=== PATIENT | female | born 1960 | race Caucasian/White ===

== ENCOUNTER 2023-01-08 13:05 | Inpatient (IN) | payer BC ==
[2023-01-08 13:34] VITALS: BMI 21.7
[2023-01-08] MEDS ORDERED: DIPHTH,PERTUSS(ACELL),TET 0.5 ML DISP.SYRIN IM ONE ×2 (14:43→14:49)
[2023-01-08] MEDS ORDERED: ACETAMINOPHEN 1000 MG/100 ML BAG IVPB ONE (17:22)
[2023-01-08] MEDS ORDERED: morphine CARPU-JECT 4 MG/1 ML DISP.SYRIN IVPUSH ONE (17:22)
[2023-01-08] MEDS ORDERED: ACETAMINOPHEN INJECTION 100 ML IVPB ONE (17:47)
[2023-01-08] MEDS ORDERED: morphine SULFATE 4 MG/ML VIAL ONE (17:47)
[2023-01-08 18:10] LABS: BASO % 0.3 % (0-2.0); HEMATOCRIT 36.7 % (32.4-45.2); HEMOGLOBIN 11.9 GM/dL (10.7-15.3); LYMPH % 8.5 % (8-40); MCH 28.4 pg (25.7-33.7); MCHC 32.6 g/dl (32.0-36.0); MEAN PLT VOLUME 7.9 fl (7.5-11.1); MONO % 5.5 % (3.8-10.2); NEUT % 85.7 % (42.8-82.8); PLATELET COUNT 223 10^3/uL (134-434); RBC 4.21 M/mm3 (3.60-5.2); RDW 16.3 % (11.6-15.6); WHITE BLOOD COUNT 13.7 K/mm3 (4.0-10.0)
[2023-01-08 18:19] LABS: INR 1.09 (0.83-1.09); PROTHROMBIN TIME (PATIENT) 12.6 SEC (9.7-13.0)
[2023-01-08 18:22] LABS: ACTIVATED PTT 35.6 SECONDS (25.2-36.5)
[2023-01-08 18:44] LABS: ALBUMIN 3.6 g/dl (3.4-5.0); BLOOD UREA NITROGEN 24.1 mg/dL (7-18); CALCIUM 9.2 mg/dL (8.5-10.1)
[2023-01-08 18:47] LABS: CREATININE 0.9 mg/dL (0.55-1.3)
[2023-01-08 18:49] LABS: BILIRUBIN,TOTAL 0.3 mg/dL (0.2-1); TOT PROT 7.8 g/dl (6.4-8.2)
[2023-01-08] MEDS ORDERED: ACETAMINOPHEN 325 MG TABLET (FP) PO PRN (19:10)
[2023-01-08] MEDS: HEPARIN NA (PORCINE) 5,000 UNITS/ML 1ML VIAL SQ SCH (22:41)
[2023-01-08] MEDS: SODIUM CHLORIDE 1,000 ML IV SCH (22:45)
[2023-01-09 08:55] LABS: BASO % 0.1 % (0-2.0); EOS % 0.1 % (0-4.5); HEMATOCRIT 31.2 % (32.4-45.2); HEMOGLOBIN 10.5 GM/dL (10.7-15.3); LYMPH % 26.1 % (8-40); MCH 28.6 pg (25.7-33.7); MCHC 33.5 g/dl (32.0-36.0); MEAN CELL VOLUME 85.4 fl (80-96); MEAN PLT VOLUME 8.3 fl (7.5-11.1); MONO % 9.5 % (3.8-10.2); NEUT % 64.2 % (42.8-82.8); PLATELET COUNT 213 10^3/uL (134-434); RBC 3.65 M/mm3 (3.60-5.2); RDW 15.8 % (11.6-15.6); WHITE BLOOD COUNT 9.9 K/mm3 (4.0-10.0)
[2023-01-09 09:17] LABS: ALBUMIN 3.1 g/dl (3.4-5.0); CALCIUM 8.5 mg/dL (8.5-10.1)
[2023-01-09 09:20] LABS: CREATININE 0.8 mg/dL (0.55-1.3)
[2023-01-09 09:23] LABS: BILIRUBIN,TOTAL 0.7 mg/dL (0.2-1)
[2023-01-09] MEDS: HEPARIN NA (PORCINE) 5,000 UNITS/ML 1ML VIAL SQ SCH (09:56)
[2023-01-09] MEDS: LEVOTHYROXINE NA 88 MCG TABLET (FP) PO SCH (10:48)
[2023-01-09] MEDS: SODIUM CHLORIDE 1,000 ML IV SCH ×2 (13:58→23:59)
[2023-01-09] MEDS ORDERED: DEXAMETHASONE SOD PHOSPHATE 10 MG/1 ML VIAL ONE (18:24)
[2023-01-09] MEDS ORDERED: ROPIVACAINE HCL 0.5% 30ML VIAL ONE (18:24)
[2023-01-09] MEDS: HYDROmorphone *PCA* 10MG/50ML DISP.SYRIN PCA SCH (20:56)
[2023-01-10] MEDS: HEPARIN NA (PORCINE) 5,000 UNITS/ML 1ML VIAL SQ SCH ×3 (00:28→21:45)
[2023-01-10] MEDS: SODIUM CHLORIDE 1,000 ML IV SCH ×3 (05:00→15:17)
[2023-01-10] MEDS ORDERED: ACETAMINOPHEN 325 MG TABLET (FP) PO ONE (06:35)
[2023-01-10 08:48] LABS: PH,URINE 5.5 (5.0-8.0); URINE APPEARANCE CLEAR; URINE BILIRUBIN NEGATIVE (NEGATIVE); URINE COLOR YELLOW; URINE GLUCOSE (UA) NEGATIVE (NEGATIVE); URINE KETONE TRACE (NEGATIVE); URINE LEUK ESTERASE NEGATIVE (NEGATIVE); URINE NITRITE NEGATIVE (NEGATIVE); URINE PROTEIN NEGATIVE (NEGATIVE); URINE UROBILINOGEN 0.2 mg/dL (0.2-1.0)
[2023-01-10] MEDS ORDERED: ACETAMINOPHEN 500 MG TABLET (FP) PO PRN (08:59)
[2023-01-10] MEDS: LEVOTHYROXINE NA 88 MCG TABLET (FP) PO SCH (09:20)
[2023-01-10 10:07] LABS: BASO % 0.1 % (0-2.0); HEMOGLOBIN 9.2 GM/dL (10.7-15.3); LYMPH % 11.7 % (8-40); MCH 29.6 pg (25.7-33.7); MCHC 33.9 g/dl (32.0-36.0); MEAN CELL VOLUME 87.2 fl (80-96); MEAN PLT VOLUME 8.5 fl (7.5-11.1); MONO % 9.4 % (3.8-10.2); NEUT % 78.8 % (42.8-82.8); PLATELET COUNT 170 10^3/uL (134-434); RDW 15.9 % (11.6-15.6); WHITE BLOOD COUNT 9.9 K/mm3 (4.0-10.0)
[2023-01-10 10:34] LABS: CALCIUM 7.8 mg/dL (8.5-10.1)
[2023-01-10 10:35] LABS: ALBUMIN 2.8 g/dl (3.4-5.0)
[2023-01-10 10:38] LABS: CREATININE 0.8 mg/dL (0.55-1.3)
[2023-01-10 10:40] LABS: BILIRUBIN,TOTAL 0.7 mg/dL (0.2-1); TOT PROT 6.2 g/dl (6.4-8.2)
[2023-01-10] MEDS: HYDROmorphone *PCA* 10MG/50ML DISP.SYRIN PCA SCH (20:01)
[2023-01-11] MEDS: SODIUM CHLORIDE 1,000 ML IV SCH ×3 (01:47→20:08)
[2023-01-11] MEDS ORDERED: LEVOTHYROXINE NA 88 MCG TABLET (FP) PO SCH (07:00)
[2023-01-11] MEDS ORDERED: PROPOFOL 20 ML ONE (08:41)
[2023-01-11] MEDS ORDERED: MIDAZOLAM HCL 2 MG/2 ML SINGLE DOSE VIAL ONE ×3 (08:42→11:02)
[2023-01-11 08:46] LABS: BASO % 0.2 % (0-2.0); EOS % 0.4 % (0-4.5); HEMATOCRIT 29.1 % (32.4-45.2); HEMOGLOBIN 9.5 GM/dL (10.7-15.3); LYMPH % 23.3 % (8-40); MCH 28.9 pg (25.7-33.7); MCHC 32.7 g/dl (32.0-36.0); MEAN CELL VOLUME 88.4 fl (80-96); MEAN PLT VOLUME 8.7 fl (7.5-11.1); MONO % 7.7 % (3.8-10.2); NEUT % 68.4 % (42.8-82.8); PLATELET COUNT 168 10^3/uL (134-434); RBC 3.29 M/mm3 (3.60-5.2); RDW 15.7 % (11.6-15.6); WHITE BLOOD COUNT 8.3 K/mm3 (4.0-10.0)
[2023-01-11] MEDS ORDERED: BUPIVACAINE HCL/PF 0.5% (5MG/ML) 10 ML VIAL ONE (08:49)
[2023-01-11] MEDS ORDERED: BUPIVACAINE LIPOSOME/PF (EXPAREL) 266 MG/20 ML VIAL ONE (08:49)
[2023-01-11 09:02] LABS: ALBUMIN 2.5 g/dl (3.4-5.0); CALCIUM 7.6 mg/dL (8.5-10.1)
[2023-01-11 09:03] LABS: BLOOD UREA NITROGEN 14.2 mg/dL (7-18)
[2023-01-11 09:05] LABS: CREATININE 0.7 mg/dL (0.55-1.3)
[2023-01-11 09:07] LABS: BILIRUBIN,TOTAL 0.4 mg/dL (0.2-1)
[2023-01-11] MEDS ORDERED: ceFAZolin SODIUM 1 GM VIAL IVPB ONE (09:30)
[2023-01-11] MEDS: HEPARIN NA (PORCINE) 5,000 UNITS/ML 1ML VIAL SQ SCH (10:02)
[2023-01-11] MEDS ORDERED: ONDANSETRON 4 MG/2 ML VIAL ONE (11:38)
[2023-01-11] MEDS ORDERED: ceFAZolin SODIUM 1 GM VIAL ONE (11:38)
[2023-01-11] MEDS ORDERED: DEXAMETHASONE SOD PHOSPHATE 4 MG/1 ML VIAL ONE (11:38)
[2023-01-11] MEDS ORDERED: MEPERIDINE HCL 25 MG/ML VIAL ONE (12:07)
[2023-01-11] MEDS ORDERED: ONDANSETRON 4 MG/2 ML VIAL IVPUSH PRN (12:17)
[2023-01-11] MEDS ORDERED: ACETAMINOPHEN 1000 MG/100 ML BAG IVPB ONE (12:17)
[2023-01-11] MEDS ORDERED: MEPERIDINE HCL 25 MG/ML VIAL IVPUSH ONE (12:18)
[2023-01-11] MEDS ORDERED: ACETAMINOPHEN 500 MG TABLET (FP) PO PRN (12:28)
[2023-01-11] MEDS ORDERED: HYDROmorphone *PCA* 10MG/50ML DISP.SYRIN PCA SCH (12:28)
[2023-01-11] MEDS ORDERED: LACTATED RINGERS SOLUTION 1,000 ML IV SCH (12:30)
[2023-01-11] MEDS ORDERED: ACETAMINOPHEN INJECTION 100 ML IVPB ONE (12:31)
[2023-01-11] MEDS: CEFAZOLIN 1 GM in DEXTROSE 5%-WATER - 50 ML IVPB SCH (18:00)
[2023-01-12] MEDS: CEFAZOLIN 1 GM in DEXTROSE 5%-WATER - 50 ML IVPB SCH ×2 (03:09→09:51)
[2023-01-12] MEDS: ACETAMINOPHEN 325 MG TABLET (FP) PO PRN ×2 (05:57→13:21)
[2023-01-12] MEDS: SODIUM CHLORIDE 1,000 ML IV SCH ×3 (07:01→18:30)
[2023-01-12] MEDS: LEVOTHYROXINE NA 88 MCG TABLET (FP) PO SCH ×2 (07:37→07:39)
[2023-01-12 08:16] LABS: BASO % 0.1 % (0-2.0); HEMATOCRIT 28.2 % (32.4-45.2); HEMOGLOBIN 9.5 GM/dL (10.7-15.3); LYMPH % 17.4 % (8-40); MCH 29.1 pg (25.7-33.7); MCHC 33.7 g/dl (32.0-36.0); MEAN CELL VOLUME 86.5 fl (80-96); MEAN PLT VOLUME 8.4 fl (7.5-11.1); MONO % 7.8 % (3.8-10.2); NEUT % 74.7 % (42.8-82.8); PLATELET COUNT 185 10^3/uL (134-434); RBC 3.26 M/mm3 (3.60-5.2); RDW 15.4 % (11.6-15.6); WHITE BLOOD COUNT 9.5 K/mm3 (4.0-10.0)
[2023-01-12 08:35] LABS: CALCIUM 7.8 mg/dL (8.5-10.1)
[2023-01-12 08:36] LABS: ALBUMIN 2.4 g/dl (3.4-5.0); BLOOD UREA NITROGEN 13.6 mg/dL (7-18)
[2023-01-12 08:39] LABS: BILIRUBIN,TOTAL 0.4 mg/dL (0.2-1); CREATININE 0.6 mg/dL (0.55-1.3)
[2023-01-12 08:40] LABS: TOT PROT 5.9 g/dl (6.4-8.2)
[2023-01-12] MEDS: ENOXAPARIN NA (PORCINE) 40 MG/0.4 ML DISP.SYRIN SQ SCH (11:37)
[2023-01-12] MEDS ORDERED: DOCUSATE SODIUM 100 MG CAPSULE (FP) PO PRN (12:43)
[2023-01-12] MEDS: POLYETHYLENE GLYCOL (HEALTHYLAX) 3350 17 GM PACKET PO SCH (13:19)
[2023-01-13] MEDS: LEVOTHYROXINE NA 88 MCG TABLET (FP) PO SCH (07:12)
[2023-01-13] MEDS: CHOLECALCIFEROL (VIT D3) 1,000 UNIT (25 MCG) TABLET PO SCH (09:41)
[2023-01-13] MEDS: ENOXAPARIN NA (PORCINE) 40 MG/0.4 ML DISP.SYRIN SQ SCH (09:41)
[2023-01-13] MEDS: POLYETHYLENE GLYCOL (HEALTHYLAX) 3350 17 GM PACKET PO SCH (09:41)
[2023-01-13 10:12] LABS: BASO % 0.1 % (0-2.0); EOS % 0.5 % (0-4.5); HEMATOCRIT 26.9 % (32.4-45.2); HEMOGLOBIN 8.8 GM/dL (10.7-15.3); LYMPH % 24.9 % (8-40); MCHC 32.8 g/dl (32.0-36.0); MEAN CELL VOLUME 85.3 fl (80-96); MEAN PLT VOLUME 8.3 fl (7.5-11.1); MONO % 7.3 % (3.8-10.2); NEUT % 67.2 % (42.8-82.8); PLATELET COUNT 178 10^3/uL (134-434); RBC 3.15 M/mm3 (3.60-5.2); RDW 15.7 % (11.6-15.6); WHITE BLOOD COUNT 8.7 K/mm3 (4.0-10.0)
[2023-01-13 10:49] LABS: CALCIUM 7.6 mg/dL (8.5-10.1)
[2023-01-13 10:51] LABS: ALBUMIN 2.1 g/dl (3.4-5.0); BLOOD UREA NITROGEN 9.7 mg/dL (7-18)
[2023-01-13 10:54] LABS: CREATININE 0.8 mg/dL (0.55-1.3)
[2023-01-13 10:55] LABS: BILIRUBIN,TOTAL 0.4 mg/dL (0.2-1)
[2023-01-13 10:56] LABS: TOT PROT 5.6 g/dl (6.4-8.2)
[2023-01-13] MEDS: ACETAMINOPHEN 325 MG TABLET (FP) PO PRN (19:00)
[2023-01-14] MEDS: LEVOTHYROXINE NA 88 MCG TABLET (FP) PO SCH (06:49)
[2023-01-14 08:53] VITALS: RESP 18
[2023-01-14] MEDS: ENOXAPARIN NA (PORCINE) 40 MG/0.4 ML DISP.SYRIN SQ SCH (09:48)
[2023-01-14] MEDS: CHOLECALCIFEROL (VIT D3) 1,000 UNIT (25 MCG) TABLET PO SCH (09:48)
[2023-01-14] MEDS: POLYETHYLENE GLYCOL (HEALTHYLAX) 3350 17 GM PACKET PO SCH (09:48)
[2023-01-14 10:15] LABS: BASO % 0.1 % (0-2.0); EOS % 1.1 % (0-4.5); HEMATOCRIT 27.6 % (32.4-45.2); HEMOGLOBIN 9.2 GM/dL (10.7-15.3); LYMPH % 21.4 % (8-40); MCH 28.2 pg (25.7-33.7); MCHC 33.2 g/dl (32.0-36.0); MEAN CELL VOLUME 84.9 fl (80-96); MEAN PLT VOLUME 8.3 fl (7.5-11.1); MONO % 7.7 % (3.8-10.2); NEUT % 69.7 % (42.8-82.8); PLATELET COUNT 185 10^3/uL (134-434); RBC 3.25 M/mm3 (3.60-5.2); RDW 15.4 % (11.6-15.6); WHITE BLOOD COUNT 8.1 K/mm3 (4.0-10.0)
[2023-01-14 10:43] LABS: ALBUMIN 2.2 g/dl (3.4-5.0); BLOOD UREA NITROGEN 9.8 mg/dL (7-18); CALCIUM 7.9 mg/dL (8.5-10.1)
[2023-01-14 10:47] LABS: BILIRUBIN,TOTAL 0.6 mg/dL (0.2-1); CREATININE 0.7 mg/dL (0.55-1.3)
[2023-01-14 10:48] LABS: TOT PROT 6.2 g/dl (6.4-8.2)
[2023-01-14] MEDS ORDERED: POTASSIUM CHLORIDE ORAL LIQUID 20 MEQ/15 ML PO ONE (13:45)
[2023-01-14] MEDS: ACETAMINOPHEN 325 MG TABLET (FP) PO PRN (18:01)
[2023-01-15] MEDS: LEVOTHYROXINE NA 88 MCG TABLET (FP) PO SCH (06:09)
[2023-01-15] MEDS: ENOXAPARIN NA (PORCINE) 40 MG/0.4 ML DISP.SYRIN SQ SCH (09:53)
[2023-01-15] MEDS: CHOLECALCIFEROL (VIT D3) 1,000 UNIT (25 MCG) TABLET PO SCH (09:53)
[2023-01-15] MEDS: POLYETHYLENE GLYCOL (HEALTHYLAX) 3350 17 GM PACKET PO SCH (09:54)
[2023-01-15 10:40] LABS: CALCIUM 8.2 mg/dL (8.5-10.1)
[2023-01-15 10:42] LABS: BLOOD UREA NITROGEN 15.2 mg/dL (7-18)
[2023-01-15 10:45] LABS: CREATININE 0.7 mg/dL (0.55-1.3)
[2023-01-15] MEDS: ACETAMINOPHEN 325 MG TABLET (FP) PO PRN (14:31)
[2023-01-16] MEDS: ACETAMINOPHEN 325 MG TABLET (FP) PO PRN (00:47)
[2023-01-16] MEDS: LEVOTHYROXINE NA 88 MCG TABLET (FP) PO SCH (06:40)
[2023-01-16] MEDS: POLYETHYLENE GLYCOL (HEALTHYLAX) 3350 17 GM PACKET PO SCH (09:03)
[2023-01-16] MEDS: ENOXAPARIN NA (PORCINE) 40 MG/0.4 ML DISP.SYRIN SQ SCH (09:04)
[2023-01-16] MEDS: CHOLECALCIFEROL (VIT D3) 1,000 UNIT (25 MCG) TABLET PO SCH (09:04)
[2023-01-16 10:30] VITALS: BP 114/65; PULSE 88; TEMP 97.5
== END 2023-01-16 15:31 | DRG 482 ==
LOC: JER 13:05 → JERBED 17:15 → J6S 21:05
PROVIDERS: ADMIT Internal Medicine; ATTEND Internal Medicine
PROC: 0QSC04Z Reposition Left Lower Femur with Internal Fixation Device, Open Approach (ICD-10-PCS; principal; 2023-01-11 09:00)
DX: S72.492A Other fracture of lower end of left femur, initial encounter for closed fracture (principal); S01.81XA Laceration without foreign body of other part of head, initial encounter; E03.9 Hypothyroidism, unspecified; W19.XXXA Unspecified fall, initial encounter; Y93.9 Activity, unspecified; Y92.89 Other specified places as the place of occurrence of the external cause; Y99.9 Unspecified external cause status; R50.9 Fever, unspecified
CPT/HCPCS: 0241U-QW; 36415; 70450-TC; 70486-TC; 71045-TC-FY; 72170-TC-FY; 73552-TC-LT-FY; 73562-TC-LT-FY; 73590-TC-LT-FY; 76000-TC-FY; 76882-TC-LT; 80048; 80053; 81003; 85025; 85610; 85730; 86850; 86900; 86901; 87040; 87086; 87186; 90715; 93005; 93010; 94760; 97116-GP; 97162-GP; 99285-25; C1713; C9803-CS; J1100; J1644; U0003; U0005

== ENCOUNTER 2024-12-01 15:52 | Inpatient (IN) | payer BC ==
[2024-12-01 16:50] LABS: HEMATOCRIT 41.7 % (32.4-45.2); HEMOGLOBIN 13.9 GM/dL (10.7-15.3); LYMPH % 24.5 % (8-40); MCH 26.8 pg (25.7-33.7); MCHC 33.4 g/dl (32.0-36.0); MEAN CELL VOLUME 80.4 fl (80-96); MEAN PLT VOLUME 7.8 fl (7.5-11.1); MONO % 4.1 % (3.8-10.2); NEUT % 71.4 % (42.8-82.8); PLATELET COUNT 186 10^3/uL (134-434); RBC 5.19 M/mm3 (3.60-5.2); RDW 20.4 % (11.6-15.6); VENOUS BASE EXCESS -7.2 mmol/L (-2-2); VENOUS O2 SATURATION 22.3 % (70-80); VENOUS PCO2 27.4 mmHg (38-52); VENOUS PH 7.388 (7.310-7.410)
[2024-12-01] MEDS: SODIUM CHLORIDE 0.9% 500 ML INFUS.BAG IV ONE (17:02)
[2024-12-01 17:04] LABS: POTASSIUM 4.4 mmol/L (3.5-5.1)
[2024-12-01 17:06] LABS: CALCIUM 9.7 mg/dL (8.5-10.1)
[2024-12-01 17:07] LABS: ALBUMIN 3.9 g/dl (3.4-5.0); BLOOD UREA NITROGEN 77.1 mg/dL (7-18)
[2024-12-01 17:09] LABS: INR 1.26 (0.83-1.09); PROTHROMBIN TIME (PATIENT) 14.1 SEC (9.7-13.0)
[2024-12-01 17:12] LABS: ACTIVATED PTT 24.6 SECONDS (25.2-36.5); TOT PROT 7.7 g/dl (6.4-8.2)
[2024-12-01 17:35] LABS: EPI CELLS 6 /uL (0-25.1); HYALINE CASTS 4 /uL (0-3.1); PH,URINE 5.5 (5.0-8.0); URINE APPEARANCE CLEAR; URINE BACTERIA 40 /uL (0-1359); URINE BILIRUBIN NEGATIVE (NEGATIVE); URINE COLOR YELLOW; URINE GLUCOSE (UA) NEGATIVE (NEGATIVE); URINE KETONE TRACE (NEGATIVE); URINE LEUK ESTERASE NEGATIVE (NEGATIVE); URINE NITRITE NEGATIVE (NEGATIVE); URINE PROTEIN 2+ (NEGATIVE); URINE RBC 15 /uL (0-23.9); URINE UROBILINOGEN 0.2 mg/dL (0.2-1.0); URINE WBC 8 /uL (0-25.8)
[2024-12-01] MEDS ORDERED: ONDANSETRON 8 MG TABLET (FP) PO PRN (23:57)
[2024-12-02] MEDS ORDERED: PANTOPRAZOLE SODIUM 40 MG VIAL ONE ×2 (02:27→11:57)
[2024-12-02] MEDS ORDERED: ALBUTEROL SO4 2.5/IPRATROPIUM 0.5 INH SOL 3 ML VIAL.NEB. NEB PRN (02:35)
[2024-12-02] MEDS: PANTOPRAZOLE SODIUM 40 MG VIAL IVPUSH SCH ×2 (02:36→12:09)
[2024-12-02] MEDS: SODIUM CHLORIDE 1,000 ML IV SCH ×2 (02:36→12:09)
[2024-12-02] MEDS: PANTOPRAZOLE SODIUM 40 MG VIAL IVPUSH ONE (02:37)
[2024-12-02] MEDS: ONDANSETRON 4 MG/2 ML VIAL IVPUSH ONE (02:37)
[2024-12-02] MEDS: ONDANSETRON 8 MG TABLET (FP) PO SCH (02:38)
[2024-12-02] MEDS ORDERED: ALBUTEROL SO4 2.5/IPRATROPIUM 0.5 INH SOL 3 ML VIAL.NEB. NEB SCH ×2 (02:45→10:00)
[2024-12-02] MEDS ORDERED: methylPREDNISolone NA SUCC 40 MG/1 ML VIAL ONE ×2 (06:06→22:38)
[2024-12-02] MEDS ORDERED: LEVOTHYROXINE NA 50 MCG TABLET (FP) ONE (06:08)
[2024-12-02] MEDS: methylPREDNISolone NA SUCC 40 MG/1 ML VIAL IVPUSH SCH ×2 (06:09→23:24)
[2024-12-02] MEDS: LEVOTHYROXINE NA 50 MCG TABLET (FP) PO SCH (06:09)
[2024-12-02 08:03] LABS: HEMATOCRIT 39.6 % (32.4-45.2); HEMOGLOBIN 13.2 GM/dL (10.7-15.3); MCHC 33.3 g/dl (32.0-36.0); MONO % 4.4 % (3.8-10.2); NEUT % 63.6 % (42.8-82.8); RBC 4.89 M/mm3 (3.60-5.2); RDW 20.9 % (11.6-15.6)
[2024-12-02] MEDS ORDERED: ALBUTEROL SO4 2.5/IPRATROPIUM 0.5 INH SOL 3 ML VIAL.NEB. NEB ONE ×3 (08:03→21:40)
[2024-12-02 08:13] LABS: POTASSIUM 3.3 mmol/L (3.5-5.1)
[2024-12-02 08:15] LABS: ALBUMIN 3.5 g/dl (3.4-5.0); CALCIUM 8.9 mg/dL (8.5-10.1)
[2024-12-02 08:16] LABS: BLOOD UREA NITROGEN 75.6 mg/dL (7-18); MAGNESIUM 2.5 mg/dL (1.8-2.4)
[2024-12-02 08:19] LABS: CREATININE 2.1 mg/dL (0.55-1.3); PHOSPHOROUS 4.1 mg/dL (2.5-4.9)
[2024-12-02 08:20] LABS: BILIRUBIN,TOTAL 0.7 mg/dL (0.2-1)
[2024-12-02 08:25] LABS: WHITE BLOOD COUNT 1.6 K/mm3 (4.0-10.0)
[2024-12-02] MEDS: ALBUTEROL SO4 2.5/IPRATROPIUM 0.5 INH SOL 3 ML VIAL.NEB. NEB SCH (08:30)
[2024-12-02 10:16] LABS: ANISOCYTOSIS 1+; MACROCYTOSIS 0
[2024-12-02 10:18] LABS: MEAN PLT VOLUME 7.7 fl (7.5-11.1); PLATELET COUNT 148 10^3/uL (134-434)
[2024-12-02] MEDS ORDERED: KCL 10 MEQ IVPB 10 MEQ/100 ML INFUS.BAG IVPB ONE ×3 (13:06→15:29)
[2024-12-02] MEDS: KCL 10 MEQ IVPB 10 MEQ/100 ML INFUS.BAG IVPB SCH (13:17)
[2024-12-02] MEDS ORDERED: methylPREDNISolone NA SUCC 40 MG/1 ML VIAL IVPUSH SCH (14:00)
[2024-12-02 21:37] LABS: URINE UREA NITROGEN 1124 mg/dL (350-1000)
[2024-12-03] MEDS ORDERED: LEVOTHYROXINE NA 50 MCG TABLET (FP) ONE (06:48)
[2024-12-03] MEDS ORDERED: PANTOPRAZOLE SODIUM 40 MG VIAL ONE (09:26)
[2024-12-03] MEDS ORDERED: ALBUTEROL SO4 2.5/IPRATROPIUM 0.5 INH SOL 3 ML VIAL.NEB. NEB ONE (09:30)
[2024-12-03] MEDS: LACTATED RINGERS SOLUTION 1,000 ML/1,000 ML INFUS.BAG IV SCH (14:04)
[2024-12-03] MEDS: IPRATROPIUM BR 0.02% 0.5 MG/2.5 ML VIAL.NEB. NEB SCH (14:50)
[2024-12-03] MEDS: LEVALBUTEROL HCL 0.63 MG/3 ML VIAL.NEB. IH SCH (14:50)
[2024-12-03] MEDS: METOPROLOL TARTRATE 5 MG/5 ML VIAL IVPB ONE (15:31)
[2024-12-03] MEDS: LACTATED RINGERS SOLUTION 1000 ML INFUS.BAG IV ONE (18:10)
[2024-12-03] MEDS: ACETAMINOPHEN 1000 MG/100 ML BAG IVPB PRN (20:37)
[2024-12-03] MEDS: SODIUM BICARBONATE 325 MG TABLET PO SCH (21:03)
[2024-12-03] MEDS: methylPREDNISolone NA SUCC 40 MG/1 ML VIAL IVPUSH SCH (21:33)
[2024-12-03] MEDS ORDERED: ACETAMINOPHEN 1000 MG/100 ML BAG IVPB PRN (21:39)
[2024-12-03 21:50] LABS: POTASSIUM 3.7 mmol/L (3.5-5.1)
[2024-12-03 21:52] LABS: CALCIUM 8.6 mg/dL (8.5-10.1)
[2024-12-03 21:53] LABS: ALBUMIN 2.9 g/dl (3.4-5.0); BLOOD UREA NITROGEN 67.8 mg/dL (7-18); MAGNESIUM 2.5 mg/dL (1.8-2.4)
[2024-12-03 21:56] LABS: CREATININE 2.3 mg/dL (0.55-1.3); PHOSPHOROUS 2.2 mg/dL (2.5-4.9)
[2024-12-03 21:57] LABS: BILIRUBIN,TOTAL 0.9 mg/dL (0.2-1); EOS % 0.1 % (0-4.5); HEMATOCRIT 42.4 % (32.4-45.2); HEMOGLOBIN 13.3 GM/dL (10.7-15.3); LYMPH % 48.8 % (8-40); MCHC 31.4 g/dl (32.0-36.0); MEAN CELL VOLUME 82.9 fl (80-96); MEAN PLT VOLUME 8.5 fl (7.5-11.1); MONO % 4.7 % (3.8-10.2); NEUT % 46.4 % (42.8-82.8); PLATELET COUNT 100 10^3/uL (134-434); RBC 5.11 M/mm3 (3.60-5.2); RDW 21.1 % (11.6-15.6); TOT PROT 5.9 g/dl (6.4-8.2)
[2024-12-03] MEDS ORDERED: HEPARIN NA (PORCINE) 5,000 UNITS/ML 1ML VIAL SQ SCH (22:00)
[2024-12-03 22:03] LABS: LACTIC ACID 4.1 mmol/L (0.4-2.0)
[2024-12-03 22:12] LABS: WHITE BLOOD COUNT 0.9 K/mm3 (4.0-10.0)
[2024-12-03] MEDS: SODIUM CHLORIDE 1,000 ML IV STA (23:08)
[2024-12-04] MEDS: ONDANSETRON 4 MG/2 ML VIAL IVPUSH PRN (00:01)
[2024-12-04] MEDS: SODIUM CHLORIDE 1,000 ML IV STA ×5 (00:01→05:57)
[2024-12-04] MEDS ORDERED: MUPIROCIN 2% TOPICAL OINTMENT FOR DECOLONIZATION NS SCH (01:30)
[2024-12-04 01:54] LABS: ANISOCYTOSIS 0; MACROCYTOSIS 0
[2024-12-04] MEDS ORDERED: NOREPINEPHRINE BITARTRATE 4 MG/4 ML ML IV ONE (02:31)
[2024-12-04 02:45] LABS: EPI CELLS 18 /uL (0-25.1); HYALINE CASTS 3 /uL (0-3.1); PH,URINE 5.5 (5.0-8.0); URINE APPEARANCE CLEAR; URINE BACTERIA 15 /uL (0-1359); URINE BILIRUBIN NEGATIVE (NEGATIVE); URINE COLOR YELLOW; URINE GLUCOSE (UA) NEGATIVE (NEGATIVE); URINE KETONE NEGATIVE (NEGATIVE); URINE LEUK ESTERASE NEGATIVE (NEGATIVE); URINE NITRITE NEGATIVE (NEGATIVE); URINE PROTEIN 2+ (NEGATIVE); URINE RBC 33 /uL (0-23.9); URINE UROBILINOGEN 0.2 mg/dL (0.2-1.0); URINE WBC 24 /uL (0-25.8)
[2024-12-04] MEDS: NOREPINEPHRINE BITARTRATE 4,000 MCG in DEXTROSE 5%-WATER - 496 ML IV SCH (02:50)
[2024-12-04 03:27] LABS: ARTERIAL BLD GAS O2 SATURATION 99.6 % (95-98); ARTERIAL BLOOD GAS BASE EXCESS -10.2 mmol/L (-2-2); ARTERIAL BLOOD GAS PCO2 < 16.70 mmHg (35-45); ARTERIAL BLOOD GAS PO2 228.4 mmHg (80-100); ARTERIAL BLOOD GAS pH 7.506 (7.350-7.450); HEMATOCRIT 35.5 % (32.4-45.2); HEMOGLOBIN 11.5 GM/dL (10.7-15.3); MCH 26.6 pg (25.7-33.7); MCHC 32.6 g/dl (32.0-36.0); MEAN CELL VOLUME 81.7 fl (80-96); MEAN PLT VOLUME 8.3 fl (7.5-11.1); PLATELET COUNT 73 10^3/uL (134-434); RBC 4.34 M/mm3 (3.60-5.2); RDW 21.4 % (11.6-15.6)
[2024-12-04 03:30] LABS: ALLENS TEST POSITIVE
[2024-12-04] MEDS: VANCOMYCIN 1,000 MG in DEXTROSE 5%-WATER - 250 ML IVPB ONE (03:31)
[2024-12-04] MEDS: PIPERACILLIN/TAZOB 2.25 GM 2.25 GM in DEXTROSE 5%-WATER - 50 ML IVPB SCH ×2 (03:34→18:04)
[2024-12-04] MEDS: ONDANSETRON 4 MG/2 ML VIAL IVPUSH ONE ×2 (03:34→06:00)
[2024-12-04 03:35] LABS: LACTIC ACID 4.7 mmol/L (0.4-2.0)
[2024-12-04] MEDS: VANCOMYCIN/WATER FOR INJ (PEG) 1,000 MG/200 ML BAG IVPB ONE ×2 (03:35→06:06)
[2024-12-04 03:38] LABS: INR 2.14 (0.83-1.09); PROTHROMBIN TIME (PATIENT) 23.7 SEC (9.7-13.0)
[2024-12-04 03:41] LABS: ACTIVATED PTT 28.3 SECONDS (25.2-36.5)
[2024-12-04 03:48] LABS: POTASSIUM 3.3 mmol/L (3.5-5.1)
[2024-12-04 03:50] LABS: CALCIUM 7.5 mg/dL (8.5-10.1)
[2024-12-04 03:51] LABS: BLOOD UREA NITROGEN 64.3 mg/dL (7-18); MAGNESIUM 2.1 mg/dL (1.8-2.4)
[2024-12-04] MEDS ORDERED: VASopressin 20 UNITS/ML VIAL IV ONE (03:51)
[2024-12-04 03:54] LABS: CREATININE 2.2 mg/dL (0.55-1.3); PHOSPHOROUS 2.6 mg/dL (2.5-4.9)
[2024-12-04 03:55] LABS: BILIRUBIN,TOTAL 0.7 mg/dL (0.2-1); TOT PROT 4.6 g/dl (6.4-8.2)
[2024-12-04] MEDS: NOREPINEPHRINE BITARTRATE/D5W 8 MG/250 ML BAG IVPB SCH (04:00)
[2024-12-04] MEDS: VASopressin 40 UNITS/100 ML BAG IV SCH (04:00)
[2024-12-04 04:14] LABS: ALBUMIN 2.2 g/dl (3.4-5.0); N-TERMINAL BNP 36832.7 pg/ml (5-125)
[2024-12-04] MEDS: LACTATED RINGERS SOLUTION 1,000 ML/1,000 ML INFUS.BAG IV SCH (04:37)
[2024-12-04] MEDS: DEXMEDETOMIDINE PREMIX 400 MCG/100 ML BAG IVPB SCH (04:45)
[2024-12-04] MEDS: LEVOTHYROXINE NA 50 MCG TABLET (FP) PO SCH (06:10)
[2024-12-04] MEDS: PIPERACILLIN/TAZOB 2.25 GM 2.25 GM/50 ML BAG IVPB SCH ×3 (06:10→21:33)
[2024-12-04] MEDS: ACETAMINOPHEN 1000 MG/100 ML BAG IVPB PRN (06:50)
[2024-12-04 06:53] LABS: ARTERIAL BLD GAS O2 SATURATION 99.7 % (95-98); ARTERIAL BLOOD GAS BASE EXCESS -8.7 mmol/L (-2-2); ARTERIAL BLOOD GAS PCO2 < 16.70 mmHg (35-45); ARTERIAL BLOOD GAS PO2 276.6 mmHg (80-100)
[2024-12-04 07:05] LABS: POTASSIUM 3.4 mmol/L (3.5-5.1)
[2024-12-04 07:10] LABS: ALBUMIN 2.2 g/dl (3.4-5.0); BLOOD UREA NITROGEN 63.4 mg/dL (7-18); CALCIUM 7.7 mg/dL (8.5-10.1); MAGNESIUM 1.9 mg/dL (1.8-2.4)
[2024-12-04 07:14] LABS: CREATININE 2.1 mg/dL (0.55-1.3)
[2024-12-04 07:15] LABS: BILIRUBIN,TOTAL 0.8 mg/dL (0.2-1); PHOSPHOROUS 2.2 mg/dL (2.5-4.9); TOT PROT 4.7 g/dl (6.4-8.2)
[2024-12-04 07:24] LABS: HEMATOCRIT 36.4 % (32.4-45.2); HEMOGLOBIN 11.6 GM/dL (10.7-15.3); MCH 26.2 pg (25.7-33.7); MCHC 31.8 g/dl (32.0-36.0); MEAN CELL VOLUME 82.2 fl (80-96); MEAN PLT VOLUME 8.7 fl (7.5-11.1); PLATELET COUNT 77 10^3/uL (134-434); RBC 4.43 M/mm3 (3.60-5.2)
[2024-12-04 07:27] LABS: LACTIC ACID 4.5 mmol/L (0.4-2.0)
[2024-12-04] MEDS: LEVALBUTEROL HCL 0.63 MG/3 ML VIAL.NEB. IH SCH (07:45)
[2024-12-04] MEDS: IPRATROPIUM BR 0.02% 0.5 MG/2.5 ML VIAL.NEB. NEB SCH (07:45)
[2024-12-04] MEDS: LACTATED RINGERS SOLUTION 1,000 ML/1,000 ML INFUS.BAG IV STA ×2 (07:53→12:01)
[2024-12-04] MEDS ORDERED: MAG HYDROX/ALH/SMC/DPHA/LIDO 240 ML MOUTHWASH MM SCH (08:00)
[2024-12-04 08:17] LABS: INR 2.81 (0.83-1.09); PROTHROMBIN TIME (PATIENT) 31.4 SEC (9.7-13.0)
[2024-12-04 08:35] LABS: WHITE BLOOD COUNT 0.9 K/mm3 (4.0-10.0)
[2024-12-04 08:35] LABS: WHITE BLOOD COUNT 0.9 K/mm3 (4.0-10.0)
[2024-12-04 08:45] LABS: LACTIC ACID 4.4 mmol/L (0.4-2.0)
[2024-12-04] MEDS: methylPREDNISolone NA SUCC 40 MG/1 ML VIAL IVPUSH SCH (09:16)
[2024-12-04] MEDS: MAG HYDROX/ALH/SMC/DPHA/LIDO 240 ML MOUTHWASH MM SCH (09:16)
[2024-12-04] MEDS: PANTOPRAZOLE SODIUM 40 MG VIAL IVPUSH SCH (09:17)
[2024-12-04] MEDS: HEPARIN NA (PORCINE) 5,000 UNITS/ML 1ML VIAL SQ SCH (09:22)
[2024-12-04] MEDS: SODIUM BICARBONATE 325 MG TABLET PO SCH (09:28)
[2024-12-04] MEDS ORDERED: HEPARIN NA (PORCINE) 5,000 UNITS/ML 1ML VIAL IVPUSH PRN ×2 (09:28)
[2024-12-04] MEDS: HEPARIN INFUSION - 25,000 UNITS/500 ML INFUS.BAG IVPB SCH (11:07)
[2024-12-04] MEDS: HEPARIN NA (PORCINE) 5,000 UNITS/ML 1ML VIAL IVPUSH ONE (11:07)
[2024-12-04 11:21] LABS: LACTIC ACID 4.8 mmol/L (0.4-2.0)
[2024-12-04] MEDS ORDERED: PHENYLEPHRINE HCL 10 MG/1 ML SINGLE DOSE VIAL ONE (11:52)
[2024-12-04] MEDS ORDERED: RAPID SEQUENCE INTUBATION KIT NR ONE (12:04)
[2024-12-04 13:02] LABS: LACTIC ACID 6.8 mmol/L (0.4-2.0)
[2024-12-04 14:12] LABS: ANISOCYTOSIS 1+
[2024-12-04] MEDS: SODIUM CHLORIDE 1,000 ML IV SCH (14:14)
[2024-12-04] MEDS: MUPIROCIN 2% TOPICAL OINTMENT FOR DECOLONIZATION NS SCH (15:27)
[2024-12-04] MEDS: NYSTATIN 500,000 UNITS/5 ML SUSPENSION PO SCH (18:12)
[2024-12-04] MEDS: PHENYLEPHRINE NS PREMIX 50,000 MCG/500 ML BAG CVP SCH (19:13)
[2024-12-04 19:51] LABS: LACTIC ACID 6.4 mmol/L (0.4-2.0)
[2024-12-04] MEDS: CHLORHEXIDINE GLUCONATE 4% CLEANSER FOR DECOLONIZATION TP SCH (21:33)
[2024-12-04] MEDS ORDERED: CHLORHEXIDINE GLUCONATE 4% CLEANSER FOR DECOLONIZATION TP SCH (22:00)
[2024-12-05] MEDS: ACETAMINOPHEN 1000 MG/100 ML BAG IVPB ONE (01:30)
[2024-12-05] MEDS: ONDANSETRON 4 MG/2 ML VIAL IVPUSH PRN (02:14)
[2024-12-05] MEDS: LACTATED RINGERS SOLUTION 1000 ML INFUS.BAG IV ONE (02:38)
[2024-12-05] MEDS ORDERED: LEVOTHYROXINE NA 50 MCG TABLET (FP) GT SCH (05:43)
[2024-12-05] MEDS: DEXTROSE 5%-0.45% SALINE 1,000 ML IV SCH ×2 (06:50→17:38)
[2024-12-05 07:24] LABS: HEMATOCRIT 31.4 % (32.4-45.2); MCH 26.4 pg (25.7-33.7); MEAN CELL VOLUME 82.4 fl (80-96); MEAN PLT VOLUME 9.7 fl (7.5-11.1); PLATELET COUNT 53 10^3/uL (134-434); RBC 3.81 M/mm3 (3.60-5.2); RDW 21.2 % (11.6-15.6)
[2024-12-05 07:33] LABS: POTASSIUM 3.7 mmol/L (3.5-5.1)
[2024-12-05 07:36] LABS: BLOOD UREA NITROGEN 50.9 mg/dL (7-18); MAGNESIUM 1.8 mg/dL (1.8-2.4)
[2024-12-05 07:37] LABS: WHITE BLOOD COUNT 1.4 K/mm3 (4.0-10.0)
[2024-12-05 07:39] LABS: CREATININE 1.9 mg/dL (0.55-1.3); PHOSPHOROUS 1.9 mg/dL (2.5-4.9)
[2024-12-05 07:41] LABS: BILIRUBIN,TOTAL 0.7 mg/dL (0.2-1); TOT PROT 4.4 g/dl (6.4-8.2)
[2024-12-05 07:46] LABS: ALBUMIN 1.7 g/dl (3.4-5.0)
[2024-12-05 07:47] LABS: LACTIC ACID 5.4 mmol/L (0.4-2.0)
[2024-12-05 07:49] LABS: ARTERIAL BLD GAS O2 SATURATION 99.6 % (95-98); ARTERIAL BLOOD GAS BASE EXCESS -8.2 mmol/L (-2-2); ARTERIAL BLOOD GAS PO2 240.3 mmHg (80-100); ARTERIAL BLOOD GAS pH 7.489 (7.350-7.450)
[2024-12-05 08:04] LABS: N-TERMINAL BNP 49732.6 pg/ml (5-125)
[2024-12-05 08:19] LABS: ACTIVATED PTT > 200.0 SECONDS (25.2-36.5)
[2024-12-05 08:25] LABS: INR 5.91 (0.83-1.09)
[2024-12-05 09:22] LABS: LACTIC ACID 3.8 mmol/L (0.4-2.0)
[2024-12-05 09:56] LABS: ANISOCYTOSIS 0; HELMET CELLS 0; HOWELL-JOLLY BODIES 0; MACROCYTOSIS 0; OVALOCYTE 0; ROULEAU 0; SICKELED CELLS 0; TARGET CELLS 0; TEAR DROP CELLS 0; TOXIC GRANULATION 0
[2024-12-05] MEDS: LEVOTHYROXINE SODIUM 100 MCG 5 ML VIAL IVPUSH SCH (10:18)
[2024-12-05 12:41] LABS: INR 2.34 (0.83-1.09); PROTHROMBIN TIME (PATIENT) 26.3 SEC (9.7-13.0)
[2024-12-05 12:44] LABS: ACTIVATED PTT 49.4 SECONDS (25.2-36.5)
[2024-12-05 13:05] LABS: LACTIC ACID 2.9 mmol/L (0.4-2.0)
[2024-12-05 13:56] VITALS: BMI 18.8
[2024-12-05 17:21] LABS: INR 2.3 (0.83-1.09); PROTHROMBIN TIME (PATIENT) 25.8 SEC (9.7-13.0)
[2024-12-05 17:40] LABS: LACTIC ACID 2.8 mmol/L (0.4-2.0)
[2024-12-06 07:33] LABS: EOS % 0.2 % (0-4.5); HEMATOCRIT 24.3 % (32.4-45.2); HEMOGLOBIN 7.9 GM/dL (10.7-15.3); LYMPH % 41.7 % (8-40); MCH 26.4 pg (25.7-33.7); MCHC 32.7 g/dl (32.0-36.0); MEAN PLT VOLUME 10.2 fl (7.5-11.1); MONO % 8.7 % (3.8-10.2); NEUT % 49.4 % (42.8-82.8); RBC 3.01 M/mm3 (3.60-5.2)
[2024-12-06 07:48] LABS: WHITE BLOOD COUNT 0.9 K/mm3 (4.0-10.0)
[2024-12-06 07:49] LABS: INR 1.64 (0.83-1.09); PLATELET COUNT 36 10^3/uL (134-434); PROTHROMBIN TIME (PATIENT) 18.6 SEC (9.7-13.0)
[2024-12-06 07:51] LABS: ACTIVATED PTT 36.2 SECONDS (25.2-36.5)
[2024-12-06 08:02] LABS: CHLORIDE 117 mmol/L (98-107); POTASSIUM 3.4 mmol/L (3.5-5.1); SODIUM 145 mmol/L (136-145)
[2024-12-06 08:13] LABS: ANION GAP 9 mmol/L (4-13); BLOOD UREA NITROGEN 38.4 mg/dL (7-18); CO2 19 mmol/L (21-32); GLUCOSE,RANDOM 176 mg/dL (74-106)
[2024-12-06 08:14] LABS: ALBUMIN 1.7 g/dl (3.4-5.0); MAGNESIUM 1.8 mg/dL (1.8-2.4)
[2024-12-06 08:16] LABS: CREATININE 1.5 mg/dL (0.55-1.3); SGOT/AST 52 U/L (15-37); SGPT/ALT 63 U/L (13-61)
[2024-12-06 08:18] LABS: BILIRUBIN,TOTAL 0.4 mg/dL (0.2-1); TOT PROT 4.3 g/dl (6.4-8.2)
[2024-12-06 08:19] LABS: ALK PHOS 36 U/L (45-117)
[2024-12-06 08:22] LABS: CALCIUM 6.8 mg/dL (8.5-10.1)
[2024-12-06] MEDS: POTASSIUM CHLORIDE ORAL LIQUID 20 MEQ/15 ML PO ONE (09:45)
[2024-12-06] MEDS: KCL 10 MEQ IVPB 10 MEQ/100 ML INFUS.BAG IVPB SCH (10:14)
[2024-12-06] MEDS: DEXTROSE 5%-0.45% SALINE 1,000 ML IV SCH (10:14)
[2024-12-06 10:17] LABS: ANISOCYTOSIS 2+; MACROCYTOSIS 1+; TARGET CELLS 1+
[2024-12-06] MEDS ORDERED: HYDROCORTISONE SOD SUCCINATE 100 MG/2 ML VIAL IVPB SCH (10:45)
[2024-12-06] MEDS: SODIUM PHOSPHATE - 15 MM in SODIUM CHLORIDE 250 ML IVPB ONE (11:10)
[2024-12-06] MEDS: MEROPENEM-0.9% SODIUM CHLORIDE 1 GM/50 ML BAG IVPB SCH (11:46)
[2024-12-06] MEDS: HYDROCORTISONE SOD SUCCINATE 100 MG/2 ML VIAL IVPB SCH (13:37)
[2024-12-06] MEDS: AMINO ACIDS 4.25%/D5W 1,000 ML IV SCH (16:49)
[2024-12-07 07:27] LABS: CHLORIDE 118 mmol/L (98-107); POTASSIUM 3.5 mmol/L (3.5-5.1); SODIUM 146 mmol/L (136-145)
[2024-12-07 07:30] LABS: HEMATOCRIT 24.1 % (32.4-45.2); HEMOGLOBIN 7.8 GM/dL (10.7-15.3); MCH 26.4 pg (25.7-33.7); MCHC 32.5 g/dl (32.0-36.0); MEAN CELL VOLUME 81.2 fl (80-96); MEAN PLT VOLUME 10.6 fl (7.5-11.1); RBC 2.97 M/mm3 (3.60-5.2); RDW 21.6 % (11.6-15.6)
[2024-12-07 07:37] LABS: ALBUMIN 1.6 g/dl (3.4-5.0); ANION GAP 7 mmol/L (4-13); BLOOD UREA NITROGEN 33.5 mg/dL (7-18); CO2 21 mmol/L (21-32); GLUCOSE,RANDOM 134 mg/dL (74-106)
[2024-12-07 07:40] LABS: SGOT/AST 28 U/L (15-37); SGPT/ALT 41 U/L (13-61)
[2024-12-07 07:42] LABS: BILIRUBIN,TOTAL 0.5 mg/dL (0.2-1); TOT PROT 4.4 g/dl (6.4-8.2)
[2024-12-07 07:43] LABS: ALK PHOS 41 U/L (45-117)
[2024-12-07 08:02] LABS: PLATELET COUNT 33 10^3/uL (134-434)
[2024-12-07 08:03] LABS: WHITE BLOOD COUNT 0.9 K/mm3 (4.0-10.0)
[2024-12-07 08:04] LABS: CALCIUM 6.8 mg/dL (8.5-10.1); PHOSPHOROUS 1.2 mg/dL (2.5-4.9)
[2024-12-07 08:32] LABS: INR 1.24 (0.83-1.09); PROTHROMBIN TIME (PATIENT) 14.2 SEC (9.7-13.0)
[2024-12-07 08:35] LABS: ACTIVATED PTT 30.6 SECONDS (25.2-36.5)
[2024-12-07] MEDS: MEROPENEM-0.9% SODIUM CHLORIDE 1 GM/50 ML BAG IVPB SCH (09:03)
[2024-12-07 09:45] LABS: CORRECTED WBC 0.81 K/mm3
[2024-12-07] MEDS: KCL 20 MEQ PREMIX BAG 20 MEQ/100 ML INFUS.BAG IVPB ONE (11:27)
[2024-12-08 07:15] LABS: INR 1.23 (0.83-1.09); PROTHROMBIN TIME (PATIENT) 14.1 SEC (9.7-13.0)
[2024-12-08 07:18] LABS: ACTIVATED PTT 26.3 SECONDS (25.2-36.5)
[2024-12-08 07:19] LABS: HEMATOCRIT 24.7 % (32.4-45.2); HEMOGLOBIN 8.2 GM/dL (10.7-15.3); MCH 26.7 pg (25.7-33.7); MCHC 33.2 g/dl (32.0-36.0); MEAN CELL VOLUME 80.4 fl (80-96); MEAN PLT VOLUME 10.6 fl (7.5-11.1); PLATELET COUNT 38 10^3/uL (134-434); RBC 3.08 M/mm3 (3.60-5.2); RDW 21.7 % (11.6-15.6)
[2024-12-08 07:32] LABS: WHITE BLOOD COUNT 1.4 K/mm3 (4.0-10.0)
[2024-12-08 07:40] LABS: CHLORIDE 118 mmol/L (98-107); POTASSIUM 3.3 mmol/L (3.5-5.1); SODIUM 146 mmol/L (136-145)
[2024-12-08 07:45] LABS: ALBUMIN 1.7 g/dl (3.4-5.0); ANION GAP 6 mmol/L (4-13); CO2 23 mmol/L (21-32)
[2024-12-08 07:46] LABS: BLOOD UREA NITROGEN 34.1 mg/dL (7-18); GLUCOSE,RANDOM 145 mg/dL (74-106)
[2024-12-08 07:48] LABS: SGOT/AST 32 U/L (15-37); SGPT/ALT 33 U/L (13-61)
[2024-12-08 07:49] LABS: CREATININE 0.8 mg/dL (0.55-1.3)
[2024-12-08 07:50] LABS: BILIRUBIN,TOTAL 0.4 mg/dL (0.2-1); TOT PROT 4.5 g/dl (6.4-8.2)
[2024-12-08 07:51] LABS: ALK PHOS 46 U/L (45-117)
[2024-12-08 07:57] LABS: PHOSPHOROUS 1.2 mg/dL (2.5-4.9)
[2024-12-08 08:01] LABS: CALCIUM 6.9 mg/dL (8.5-10.1)
[2024-12-08] MEDS ORDERED: NAPH,MB-DB/K PH,MBDB POWDER PACKET PO ONE (08:41)
[2024-12-08] MEDS ORDERED: POTASSIUM CHLORIDE ORAL LIQUID 20 MEQ/15 ML PO ONE (08:45)
[2024-12-08] MEDS: CALCIUM GLUC IN NACL, ISO-OSM 1 GM/50 ML BAG IVPB ONE (09:45)
[2024-12-08 09:59] LABS: ANISOCYTOSIS 1+; CORRECTED WBC 1.24 K/mm3; MACROCYTOSIS 0
[2024-12-08] MEDS: NAPH,MB-DB/K PH,MBDB POWDER PACKET PO SCH (10:57)
[2024-12-08] MEDS ORDERED: NAPH,MB-DB/K PH,MBDB POWDER PACKET PO SCH (14:00)
[2024-12-08] MEDS: HEPARIN NA (PORCINE) 5,000 UNITS/ML 1ML VIAL SQ SCH (21:36)
[2024-12-08] MEDS: HYDROCORTISONE SOD SUCCINATE 100 MG/2 ML VIAL IVPB SCH (21:36)
[2024-12-08] MEDS ORDERED: HYDROCORTISONE SOD SUCCINATE 100 MG/2 ML VIAL IVPB SCH (22:00)
[2024-12-09 07:43] LABS: HEMATOCRIT 30.3 % (32.4-45.2); HEMOGLOBIN 9.7 GM/dL (10.7-15.3); MCHC 32.1 g/dl (32.0-36.0); MEAN CELL VOLUME 80.9 fl (80-96); MEAN PLT VOLUME 10.6 fl (7.5-11.1); PLATELET COUNT 63 10^3/uL (134-434); RBC 3.75 M/mm3 (3.60-5.2); RDW 21.7 % (11.6-15.6)
[2024-12-09 08:05] LABS: POTASSIUM 3.3 mmol/L (3.5-5.1)
[2024-12-09 08:08] LABS: CALCIUM 7.8 mg/dL (8.5-10.1)
[2024-12-09 08:09] LABS: ALBUMIN 1.9 g/dl (3.4-5.0); BLOOD UREA NITROGEN 35.5 mg/dL (7-18); MAGNESIUM 2.1 mg/dL (1.8-2.4)
[2024-12-09 08:11] LABS: CREATININE 0.7 mg/dL (0.55-1.3)
[2024-12-09 08:12] LABS: PHOSPHOROUS 1.7 mg/dL (2.5-4.9)
[2024-12-09 08:13] LABS: BILIRUBIN,TOTAL 1.4 mg/dL (0.2-1)
[2024-12-09 08:47] LABS: INR 1.44 (0.83-1.09); PROTHROMBIN TIME (PATIENT) 15.8 SEC (9.7-13.0)
[2024-12-09 08:49] LABS: ACTIVATED PTT 24.5 SECONDS (25.2-36.5)
[2024-12-09] MEDS: LEVALBUTEROL HCL 0.63 MG/3 ML VIAL.NEB. IH SCH (08:50)
[2024-12-09] MEDS: IPRATROPIUM BR 0.02% 0.5 MG/2.5 ML VIAL.NEB. NEB SCH (08:50)
[2024-12-09] MEDS: MUPIROCIN 2% TOPICAL OINTMENT FOR DECOLONIZATION NS SCH (09:06)
[2024-12-09] MEDS: HEPARIN NA (PORCINE) 5,000 UNITS/ML 1ML VIAL SQ SCH ×2 (09:06→22:07)
[2024-12-09] MEDS: MEROPENEM-0.9% SODIUM CHLORIDE 1 GM/50 ML BAG IVPB SCH (09:06)
[2024-12-09 10:12] LABS: ANISOCYTOSIS 2+; MACROCYTOSIS 0; OVALOCYTE 0; TARGET CELLS 1+
[2024-12-09] MEDS: POTASSIUM PHOSPHATE 15 MM in DEXTROSE 5%-WATER - 250 ML IVPB ONE (11:30)
[2024-12-09] MEDS: MAG HYDROX/ALH/SMC/DPHA/LIDO 240 ML MOUTHWASH MM SCH (11:30)
[2024-12-09] MEDS: NYSTATIN 500,000 UNITS/5 ML SUSPENSION PO SCH (11:30)
[2024-12-09] MEDS: ONDANSETRON 4 MG/2 ML VIAL IVPUSH PRN (11:58)
[2024-12-09 13:33] LABS: BILIRUBIN,DIRECT 0.8 mg/dL (0.0-0.2)
[2024-12-09] MEDS: AMINO ACIDS 4.25%/D5W 1,000 ML IV SCH (15:46)
[2024-12-09] MEDS: AMINO ACIDS 4.25%/D5W 2,000 ML IV SCH (19:35)
[2024-12-09] MEDS: SODIUM CHLORIDE 1,000 ML IV STA (21:48)
[2024-12-09] MEDS: CHLORHEXIDINE GLUCONATE 4% CLEANSER FOR DECOLONIZATION TP SCH (22:07)
[2024-12-10] MEDS: AMINO ACIDS 4.25%/D5W 2,000 ML IV SCH (05:56)
[2024-12-10 06:23] LABS: HEMATOCRIT 32.2 % (32.4-45.2); HEMOGLOBIN 10.1 GM/dL (10.7-15.3); MCH 25.9 pg (25.7-33.7); MCHC 31.5 g/dl (32.0-36.0); MEAN CELL VOLUME 82.3 fl (80-96); MEAN PLT VOLUME 10.5 fl (7.5-11.1); PLATELET COUNT 79 10^3/uL (134-434); RBC 3.92 M/mm3 (3.60-5.2); RDW 22.5 % (11.6-15.6); WHITE BLOOD COUNT 2.6 K/mm3 (4.0-10.0)
[2024-12-10 06:44] LABS: POTASSIUM 3.4 mmol/L (3.5-5.1)
[2024-12-10 06:49] LABS: CALCIUM 7.3 mg/dL (8.5-10.1)
[2024-12-10 06:53] LABS: CREATININE 0.8 mg/dL (0.55-1.3); PHOSPHOROUS 1.2 mg/dL (2.5-4.9)
[2024-12-10 06:54] LABS: TOT PROT 5.1 g/dl (6.4-8.2)
[2024-12-10 09:28] LABS: ANISOCYTOSIS 2+; MACROCYTOSIS 0
[2024-12-10] MEDS: HYDROCORTISONE SOD SUCCINATE 100 MG/2 ML VIAL IVPB SCH (09:51)
[2024-12-10] MEDS: POTASSIUM PHOSPHATE 30 MM in DEXTROSE 5%-WATER - 500 ML IVPB ONE (11:14)
[2024-12-10] MEDS: LEVOTHYROXINE SODIUM 100 MCG 5 ML VIAL IVPUSH SCH (11:14)
[2024-12-10] MEDS: SODIUM CHLORIDE 0.45% 1,000 ML IV SCH (17:40)
[2024-12-10 20:50] LABS: PH,URINE 5.5 (5.0-8.0); URINE APPEARANCE CLEAR; URINE BILIRUBIN NEGATIVE (NEGATIVE); URINE COLOR DK YELLOW; URINE GLUCOSE (UA) 500 mg/dl (NEGATIVE); URINE KETONE NEGATIVE (NEGATIVE); URINE NITRITE NEGATIVE (NEGATIVE); URINE PROTEIN 100 (NEGATIVE); URINE UROBILINOGEN 0.2 mg/dL (0.2-1.0)
[2024-12-10 20:51] LABS: HYALINE CASTS 1.5 /uL (0-3.1); URINE BACTERIA 10.3 /uL (0-1359); URINE LEUK ESTERASE NEGATIVE (NEGATIVE); URINE WBC 149.9 /uL (0-25.8)
[2024-12-11 07:09] LABS: HEMATOCRIT 30.3 % (32.4-45.2); HEMOGLOBIN 9.7 GM/dL (10.7-15.3); MCH 26.1 pg (25.7-33.7); MCHC 31.9 g/dl (32.0-36.0); MEAN CELL VOLUME 81.8 fl (80-96); MEAN PLT VOLUME 10.9 fl (7.5-11.1); PLATELET COUNT 89 10^3/uL (134-434); RBC 3.71 M/mm3 (3.60-5.2); RDW 21.7 % (11.6-15.6); WHITE BLOOD COUNT 3.9 K/mm3 (4.0-10.0)
[2024-12-11 07:33] LABS: CHLORIDE 107 mmol/L (98-107); POTASSIUM 3.3 mmol/L (3.5-5.1); SODIUM 138 mmol/L (136-145)
[2024-12-11 07:36] LABS: ALBUMIN 1.8 g/dl (3.4-5.0); ANION GAP 9 mmol/L (4-13); BLOOD UREA NITROGEN 33.5 mg/dL (7-18); CO2 22 mmol/L (21-32); GLUCOSE,RANDOM 124 mg/dL (74-106); MAGNESIUM 1.5 mg/dL (1.8-2.4)
[2024-12-11 07:39] LABS: CREATININE 0.6 mg/dL (0.55-1.3); PHOSPHOROUS 1.3 mg/dL (2.5-4.9); SGOT/AST 69 U/L (15-37); SGPT/ALT 65 U/L (13-61)
[2024-12-11 07:40] LABS: BILIRUBIN,TOTAL 0.6 mg/dL (0.2-1); TOT PROT 4.7 g/dl (6.4-8.2)
[2024-12-11 07:41] LABS: ALK PHOS 77 U/L (45-117)
[2024-12-11 07:48] LABS: CALCIUM 6.6 mg/dL (8.5-10.1)
[2024-12-11] MEDS: MAGNESIUM 2GM/50ML STERILE WATER IVPB IVPB ONE (08:25)
[2024-12-11 09:13] LABS: ANISOCYTOSIS 1+; MACROCYTOSIS 0
[2024-12-11] MEDS: POTASSIUM PHOSPHATE 30 MM in SODIUM CHLORIDE 500 ML IVPB ONE (10:33)
[2024-12-11] MEDS: MAGNESIUM SULFATE IN WATER 2 GM/50 ML IVPB IVPB ONE (14:00)
[2024-12-11] MEDS: SODIUM CHLORIDE 1,000 ML IV SCH (14:44)
[2024-12-11] MEDS: PETROLATUM, WHITE 30 GM TUBE TP SCH (14:44)
[2024-12-11] MEDS: PHENOL 177 ML SPRAY BOTTLE MM PRN (14:57)
[2024-12-11] MEDS: SODIUM CHLORIDE 0.9%/KCL 20 MEQ/1,000 ML INFUS.BAG IV SCH (16:32)
[2024-12-11] MEDS: AMINO ACIDS 4.25%/D5W 1,000 ML IV SCH (16:33)
[2024-12-12 13:21] LABS: HEMATOCRIT 42.2 % (32.4-45.2); HEMOGLOBIN 12.8 GM/dL (10.7-15.3); MCH 26.3 pg (25.7-33.7); MCHC 30.3 g/dl (32.0-36.0); MEAN CELL VOLUME 86.9 fl (80-96); MEAN PLT VOLUME 11.1 fl (7.5-11.1); PLATELET COUNT 91 10^3/uL (134-434); RBC 4.85 M/mm3 (3.60-5.2); RDW 23.2 % (11.6-15.6); WHITE BLOOD COUNT 2.7 K/mm3 (4.0-10.0)
[2024-12-12 13:40] LABS: POTASSIUM 5.2 mmol/L (3.5-5.1)
[2024-12-12 13:42] LABS: CALCIUM 7.1 mg/dL (8.5-10.1)
[2024-12-12 13:44] LABS: ALBUMIN 2.2 g/dl (3.4-5.0)
[2024-12-12 13:46] LABS: CREATININE 0.8 mg/dL (0.55-1.3)
[2024-12-12 13:47] LABS: BILIRUBIN,TOTAL 0.9 mg/dL (0.2-1); PHOSPHOROUS 2.6 mg/dL (2.5-4.9)
[2024-12-12 14:22] LABS: ANISOCYTOSIS 1+; MACROCYTOSIS 1+
[2024-12-12] MEDS: LYTES/YERBA SANTA 60 ML SPRAY MM SCH (16:11)
[2024-12-12] MEDS: AMINO ACIDS 4.25%/D5W 1,000 ML IV SCH ×2 (17:38→18:53)
[2024-12-12] MEDS: SODIUM CHLORIDE 1,000 ML IV SCH ×2 (17:39→18:53)
[2024-12-12] MEDS: MIDODRINE HCL 5 MG TABLET PO ONE (20:57)
[2024-12-12] MEDS: SODIUM CHLORIDE 1,000 ML IV STA (22:37)
[2024-12-13 07:05] LABS: HEMATOCRIT 38.8 % (32.4-45.2); HEMOGLOBIN 12.2 GM/dL (10.7-15.3); MCH 26.1 pg (25.7-33.7); MCHC 31.5 g/dl (32.0-36.0); MEAN PLT VOLUME 10.7 fl (7.5-11.1); PLATELET COUNT 100 10^3/uL (134-434); RBC 4.68 M/mm3 (3.60-5.2); WHITE BLOOD COUNT 2.2 K/mm3 (4.0-10.0)
[2024-12-13 07:27] LABS: POTASSIUM 4.2 mmol/L (3.5-5.1)
[2024-12-13 07:33] LABS: ALBUMIN 2.1 g/dl (3.4-5.0); BLOOD UREA NITROGEN 31.8 mg/dL (7-18); MAGNESIUM 1.8 mg/dL (1.8-2.4)
[2024-12-13 07:35] LABS: CREATININE 0.6 mg/dL (0.55-1.3)
[2024-12-13 07:36] LABS: PHOSPHOROUS 1.9 mg/dL (2.5-4.9)
[2024-12-13 07:37] LABS: BILIRUBIN,TOTAL 0.8 mg/dL (0.2-1); TOT PROT 5.8 g/dl (6.4-8.2)
[2024-12-13] MEDS ORDERED: MIDODRINE HCL 5 MG TABLET PO SCH ×2 (10:00)
[2024-12-13 10:05] LABS: ANISOCYTOSIS 2+; MACROCYTOSIS 0; TARGET CELLS 1+
[2024-12-13] MEDS: MIDODRINE HCL 5 MG, MIDODRINE HCL 2.5 MG PO SCH (10:43)
[2024-12-13] MEDS: SODIUM PHOSPHATE - 15 MM in DEXTROSE 5%-WATER - 250 ML IVPB ONE (14:48)
[2024-12-13] MEDS ORDERED: TBO-FILGRASTIM 300 MCG/0.5 ML DISP.SYRINGE SQ SCH (17:59)
[2024-12-13] MEDS: TBO-FILGRASTIM 300 MCG/0.5 ML DISP.SYRINGE SQ SCH (18:08)
[2024-12-13] MEDS: TBO-FILGRASTIM 300 MCG/0.5 ML DISP.SYRINGE SQ ONE (18:13)
[2024-12-14] MEDS: SODIUM CHLORIDE 500 ML IV STA (05:44)
[2024-12-14] MEDS: POTASSIUM PHOSPHATE 30 MM in DEXTROSE 5%-WATER - 500 ML IVPB ONE (07:27)
[2024-12-14 10:30] LABS: HEMATOCRIT 22.5 % (32.4-45.2); MCH 26.4 pg (25.7-33.7); MCHC 30.7 g/dl (32.0-36.0); MEAN PLT VOLUME 11.1 fl (7.5-11.1); PLATELET COUNT 73 10^3/uL (134-434); RBC 2.61 M/mm3 (3.60-5.2); RDW 22.5 % (11.6-15.6); WHITE BLOOD COUNT 3.5 K/mm3 (4.0-10.0)
[2024-12-14 10:45] LABS: HEMOGLOBIN 6.9 GM/dL (10.7-15.3)
[2024-12-14 10:54] LABS: CHLORIDE 83 mmol/L (98-107)
[2024-12-14 10:55] LABS: POTASSIUM 2.5 mmol/L (3.5-5.1); SODIUM 108 mmol/L (136-145)
[2024-12-14 10:56] LABS: ANION GAP 12 mmol/L (4-13); BLOOD UREA NITROGEN 24.1 mg/dL (7-18); CALCIUM 5.3 mg/dL (8.5-10.1); CO2 13 mmol/L (21-32)
[2024-12-14 10:59] LABS: CREATININE 0.6 mg/dL (0.55-1.3)
[2024-12-14 11:07] LABS: GLUCOSE,RANDOM 927 mg/dL (74-106)
[2024-12-14 11:21] LABS: MAGNESIUM 1.2 mg/dL (1.8-2.4)
[2024-12-14 11:22] LABS: ALBUMIN 1.2 g/dl (3.4-5.0)
[2024-12-14 11:25] LABS: BILIRUBIN,DIRECT 0.2 mg/dL (0.0-0.2); PHOSPHOROUS 1.5 mg/dL (2.5-4.9); SGOT/AST 23 U/L (15-37); SGPT/ALT 14 U/L (13-61)
[2024-12-14 11:27] LABS: BILIRUBIN,TOTAL 0.4 mg/dL (0.2-1)
[2024-12-14 11:28] LABS: ALK PHOS 43 U/L (45-117); TOT PROT 3.3 g/dl (6.4-8.2)
[2024-12-14 11:35] LABS: ANISOCYTOSIS 2+; MACROCYTOSIS 0; TARGET CELLS 1+
[2024-12-14 11:41] LABS: HEMATOCRIT 29.4 % (32.4-45.2); HEMOGLOBIN 9.5 GM/dL (10.7-15.3); MCH 26.1 pg (25.7-33.7); MCHC 32.3 g/dl (32.0-36.0); MEAN PLT VOLUME 10.9 fl (7.5-11.1); PLATELET COUNT 99 10^3/uL (134-434); RBC 3.62 M/mm3 (3.60-5.2); RDW 21.6 % (11.6-15.6); WHITE BLOOD COUNT 4.4 K/mm3 (4.0-10.0)
[2024-12-14 12:04] LABS: ANISOCYTOSIS 2+; OVALOCYTE 1+
[2024-12-14 12:06] LABS: POTASSIUM 3.5 mmol/L (3.5-5.1)
[2024-12-14 12:09] LABS: MAGNESIUM 1.6 mg/dL (1.8-2.4)
[2024-12-14 12:10] LABS: ALBUMIN 1.7 g/dl (3.4-5.0)
[2024-12-14 12:12] LABS: CREATININE 0.5 mg/dL (0.55-1.3); PHOSPHOROUS 2.2 mg/dL (2.5-4.9)
[2024-12-14 12:13] LABS: BILIRUBIN,TOTAL 0.6 mg/dL (0.2-1)
[2024-12-14 12:14] LABS: TOT PROT 4.5 g/dl (6.4-8.2)
[2024-12-14] MEDS: MAGNESIUM SULFATE IN WATER 2 GM/50 ML IVPB IVPB ONE (12:31)
[2024-12-14] MEDS: PANTOPRAZOLE SODIUM 40 MG VIAL IVPUSH SCH (13:57)
[2024-12-14] MEDS: MAGNESIUM 1GM/D5W - 1 GM/100 ML IVPB IVPB ONE (14:30)
[2024-12-14] MEDS: KCL 20 MEQ PREMIX BAG 20 MEQ/100 ML INFUS.BAG IVPB SCH (14:30)
[2024-12-14] MEDS: AMINO ACIDS 4.25%/D5W 1,000 ML IV SCH (17:53)
[2024-12-14 18:53] LABS: HEMATOCRIT 28.8 % (32.4-45.2); HEMOGLOBIN 9.4 GM/dL (10.7-15.3); LYMPH % 20.9 % (8-40); MCH 26.6 pg (25.7-33.7); MCHC 32.6 g/dl (32.0-36.0); MEAN CELL VOLUME 81.6 fl (80-96); MEAN PLT VOLUME 10.7 fl (7.5-11.1); MONO % 9.4 % (3.8-10.2); NEUT % 69.7 % (42.8-82.8); PLATELET COUNT 101 10^3/uL (134-434); RBC 3.53 M/mm3 (3.60-5.2); RDW 21.2 % (11.6-15.6); WHITE BLOOD COUNT 5.8 K/mm3 (4.0-10.0)
[2024-12-14 19:30] LABS: ANISOCYTOSIS 2+; CORRECTED WBC 5.23 K/mm3; MACROCYTOSIS 0; OVALOCYTE 1+; TARGET CELLS 1+; TOXIC GRANULATION 1+
[2024-12-15] MEDS: SODIUM CHLORIDE 1,000 ML IV STA (04:31)
[2024-12-15 08:02] LABS: POTASSIUM 3.4 mmol/L (3.5-5.1); SODIUM 136 mmol/L (136-145)
[2024-12-15 08:13] LABS: GLUCOSE,RANDOM 97 mg/dL (74-106)
[2024-12-15 08:14] LABS: ALBUMIN 1.4 g/dl (3.4-5.0); BLOOD UREA NITROGEN 32.1 mg/dL (7-18); CO2 16 mmol/L (21-32); MAGNESIUM 1.9 mg/dL (1.8-2.4)
[2024-12-15 08:15] LABS: HEMATOCRIT 24.6 % (32.4-45.2); HEMOGLOBIN 7.9 GM/dL (10.7-15.3); MCH 26.5 pg (25.7-33.7); MCHC 32.2 g/dl (32.0-36.0); MEAN CELL VOLUME 82.3 fl (80-96); MEAN PLT VOLUME 11.2 fl (7.5-11.1); PLATELET COUNT 83 10^3/uL (134-434); RBC 2.99 M/mm3 (3.60-5.2); RDW 21.5 % (11.6-15.6); WHITE BLOOD COUNT 5.3 K/mm3 (4.0-10.0)
[2024-12-15 08:16] LABS: CREATININE 0.6 mg/dL (0.55-1.3); PHOSPHOROUS 2.1 mg/dL (2.5-4.9); SGPT/ALT 16 U/L (13-61)
[2024-12-15 08:17] LABS: BILIRUBIN,TOTAL 0.6 mg/dL (0.2-1); SGOT/AST 24 U/L (15-37)
[2024-12-15 08:18] LABS: TOT PROT 3.8 g/dl (6.4-8.2)
[2024-12-15 08:19] LABS: ALK PHOS 62 U/L (45-117)
[2024-12-15 08:22] LABS: ANION GAP 7 mmol/L (4-13); CALCIUM 6.6 mg/dL (8.5-10.1); CHLORIDE 114 mmol/L (98-107)
[2024-12-15 10:03] LABS: ANISOCYTOSIS 1+; MACROCYTOSIS 1+
[2024-12-15] MEDS: KCL 10 MEQ IVPB 10 MEQ/100 ML INFUS.BAG IVPB SCH (10:28)
[2024-12-15] MEDS: MAGNESIUM 2GM/50ML STERILE WATER IVPB IVPB ONE (10:41)
[2024-12-15] MEDS: ASPIRIN 325 MG ENTERIC COATED TABLET (FP) PO ONE (12:55)
[2024-12-15] MEDS: CALCIUM GLUCONATE 10% - 1,000 MG/10 ML VIAL IVPB ONE (14:30)
[2024-12-15] MEDS: POTASSIUM PHOSPHATE 15 MM in SODIUM CHLORIDE 250 ML IVPB ONE (17:58)
[2024-12-15] MEDS ORDERED: ONDANSETRON 4 MG/2 ML VIAL ONE (19:43)
[2024-12-15] MEDS: ONDANSETRON 4 MG/2 ML VIAL IVPUSH PRN (20:02)
[2024-12-15] MEDS: LIDOCAINE VISCOUS 2% ORAL/TOP 15 ML UNIT-DOSE CUP MM PRN (23:15)
[2024-12-16 07:44] LABS: HEMOGLOBIN 9.7 GM/dL (10.7-15.3); MCH 26.2 pg (25.7-33.7); MCHC 31.2 g/dl (32.0-36.0); MEAN CELL VOLUME 83.8 fl (80-96); MEAN PLT VOLUME 10.3 fl (7.5-11.1); PLATELET COUNT 91 10^3/uL (134-434); RDW 21.8 % (11.6-15.6)
[2024-12-16 07:46] LABS: WHITE BLOOD COUNT 3.9 K/mm3 (4.0-10.0)
[2024-12-16 08:19] LABS: POTASSIUM 4.3 mmol/L (3.5-5.1)
[2024-12-16 08:21] LABS: BLOOD UREA NITROGEN 30.2 mg/dL (7-18); CALCIUM 7.4 mg/dL (8.5-10.1)
[2024-12-16 08:25] LABS: CREATININE 0.7 mg/dL (0.55-1.3); PHOSPHOROUS 2.7 mg/dL (2.5-4.9)
[2024-12-16 08:26] LABS: BILIRUBIN,TOTAL 0.8 mg/dL (0.2-1); TOT PROT 4.8 g/dl (6.4-8.2)
[2024-12-16 08:31] LABS: ALBUMIN 1.8 g/dl (3.4-5.0)
[2024-12-16 09:35] LABS: ERYTHROCYTE SEDIMENTATION RATE 18 mm/hr (0-30)
[2024-12-16 09:48] LABS: ANISOCYTOSIS 2+; CORRECTED WBC 3.31 K/mm3; MACROCYTOSIS 0
[2024-12-16] MEDS: PYRIDOXINE HCL 100 MG/1 ML VIAL IVPB SCH (13:40)
[2024-12-16] MEDS: SUCRALFATE 1 GM/10 ML UNIT DOSE CUPS PO SCH (15:30)
[2024-12-16] MEDS: FOLIC ACID 5 MG/1 ML SQ SCH (15:30)
[2024-12-16] MEDS: SODIUM CHLORIDE 250 ML IV STA (17:00)
[2024-12-17 08:10] LABS: POTASSIUM 3.4 mmol/L (3.5-5.1)
[2024-12-17 08:13] LABS: ALBUMIN 1.5 g/dl (3.4-5.0); BLOOD UREA NITROGEN 23.4 mg/dL (7-18)
[2024-12-17 08:16] LABS: CREATININE 0.5 mg/dL (0.55-1.3)
[2024-12-17 08:17] LABS: BILIRUBIN,TOTAL 0.7 mg/dL (0.2-1)
[2024-12-17 08:18] LABS: TOT PROT 4.3 g/dl (6.4-8.2)
[2024-12-17 09:44] LABS: MAGNESIUM 1.7 mg/dL (1.8-2.4)
[2024-12-17 09:47] LABS: PHOSPHOROUS 1.9 mg/dL (2.5-4.9)
[2024-12-17 10:44] LABS: HEMATOCRIT 24.1 % (32.4-45.2); HEMOGLOBIN 7.7 GM/dL (10.7-15.3); MCH 26.5 pg (25.7-33.7); MCHC 31.8 g/dl (32.0-36.0); MEAN CELL VOLUME 83.2 fl (80-96); MEAN PLT VOLUME 10.5 fl (7.5-11.1); PLATELET COUNT 73 10^3/uL (134-434); RBC 2.89 M/mm3 (3.60-5.2); RDW 22.3 % (11.6-15.6)
[2024-12-17] MEDS: MAGNESIUM 2GM/50ML STERILE WATER IVPB IVPB ONE (10:54)
[2024-12-17 10:56] LABS: WHITE BLOOD COUNT 1.6 K/mm3 (4.0-10.0)
[2024-12-17] MEDS: POTASSIUM PHOSPHATE 15 MM in SODIUM CHLORIDE 250 ML IVPB ONE (11:27)
[2024-12-17] MEDS ORDERED: MAGNESIUM SULFATE IN WATER 2 GM/50 ML IVPB IVPB ONE (12:40)
[2024-12-17] MEDS: THIAMINE HCL 200 MG/2 ML VIAL IVPB SCH (17:32)
[2024-12-17] MEDS: TBO-FILGRASTIM 300 MCG/0.5 ML DISP.SYRINGE SQ ONE (17:32)
[2024-12-18 07:15] LABS: ALBUMIN 1.4 g/dl (3.4-5.0); BLOOD UREA NITROGEN 18.4 mg/dL (7-18)
[2024-12-18 07:18] LABS: CREATININE 0.4 mg/dL (0.55-1.3); PHOSPHOROUS 1.7 mg/dL (2.5-4.9)
[2024-12-18 07:20] LABS: BILIRUBIN,TOTAL 0.8 mg/dL (0.2-1); TOT PROT 4.1 g/dl (6.4-8.2)
[2024-12-18 07:52] LABS: HEMATOCRIT 22.4 % (32.4-45.2); MCH 26.5 pg (25.7-33.7); MCHC 31.5 g/dl (32.0-36.0); MEAN CELL VOLUME 84.3 fl (80-96); MEAN PLT VOLUME 9.9 fl (7.5-11.1); PLATELET COUNT 68 10^3/uL (134-434); RBC 2.65 M/mm3 (3.60-5.2)
[2024-12-18 08:53] LABS: WHITE BLOOD COUNT 2.9 K/mm3 (4.0-10.0)
[2024-12-18 10:23] LABS: ANISOCYTOSIS 1+; MACROCYTOSIS 1+
[2024-12-18] MEDS: KCL 10 MEQ IVPB 10 MEQ/100 ML INFUS.BAG IVPB SCH (11:28)
[2024-12-18] MEDS: SODIUM PHOSPHATE - 30 MM in DEXTROSE 5%-WATER - 250 ML IVPB ONE (11:34)
[2024-12-18] MEDS: POTASSIUM PHOSPHATE 30 MM in SODIUM CHLORIDE 500 ML IVPB ONE (12:28)
[2024-12-18] MEDS: POTASSIUM CHLORIDE 20 MEQ in AMINO ACIDS 4.25%/D5W 1,000 ML IV SCH (17:30)
[2024-12-18] MEDS: TBO-FILGRASTIM 300 MCG/0.5 ML DISP.SYRINGE SQ ONE (21:36)
[2024-12-18 21:48] LABS: HEMATOCRIT 27.2 % (32.4-45.2); HEMOGLOBIN 8.7 GM/dL (10.7-15.3); MCH 24.4 pg (25.7-33.7); MEAN CELL VOLUME 76.2 fl (80-96); MEAN PLT VOLUME 10.6 fl (7.5-11.1); PLATELET COUNT 62 10^3/uL (134-434); RBC 3.57 M/mm3 (3.60-5.2); RDW 23.9 % (11.6-15.6); WHITE BLOOD COUNT 2.1 K/mm3 (4.0-10.0)
[2024-12-18 23:15] LABS: ANISOCYTOSIS 1+; CORRECTED WBC 1.83 K/mm3; MACROCYTOSIS 1+
[2024-12-19 07:41] LABS: HEMATOCRIT 29.6 % (32.4-45.2); HEMOGLOBIN 9.7 GM/dL (10.7-15.3); MCHC 32.8 g/dl (32.0-36.0); MEAN CELL VOLUME 76.3 fl (80-96); MEAN PLT VOLUME 10.7 fl (7.5-11.1); PLATELET COUNT 56 10^3/uL (134-434); RBC 3.88 M/mm3 (3.60-5.2); RDW 22.7 % (11.6-15.6); WHITE BLOOD COUNT 3.6 K/mm3 (4.0-10.0)
[2024-12-19 07:58] LABS: CHLORIDE 110 mmol/L (98-107); POTASSIUM 3.1 mmol/L (3.5-5.1); SODIUM 133 mmol/L (136-145)
[2024-12-19 08:02] LABS: ALBUMIN 1.4 g/dl (3.4-5.0); ANION GAP 5 mmol/L (4-13); BLOOD UREA NITROGEN 14.9 mg/dL (7-18); CO2 18 mmol/L (21-32); GLUCOSE,RANDOM 86 mg/dL (74-106)
[2024-12-19 08:04] LABS: CALCIUM 6.9 mg/dL (8.5-10.1)
[2024-12-19 08:05] LABS: SGOT/AST 20 U/L (15-37); SGPT/ALT 15 U/L (13-61)
[2024-12-19 08:06] LABS: BILIRUBIN,TOTAL 0.9 mg/dL (0.2-1); CREATININE 0.4 mg/dL (0.55-1.3); TOT PROT 4.1 g/dl (6.4-8.2)
[2024-12-19 08:08] LABS: ALK PHOS 71 U/L (45-117)
[2024-12-19 08:29] LABS: ACTIVATED PTT 33.6 SECONDS (25.2-36.5)
[2024-12-19 08:31] LABS: INR 1.72 (0.83-1.09); PROTHROMBIN TIME (PATIENT) 18.9 SEC (9.7-13.0)
[2024-12-19 08:44] LABS: ANISOCYTOSIS 1+; CORRECTED WBC 3.13 K/mm3
[2024-12-19 08:51] LABS: MAGNESIUM 1.6 mg/dL (1.8-2.4)
[2024-12-19 08:54] LABS: PHOSPHOROUS 1.6 mg/dL (2.5-4.9)
[2024-12-19] MEDS: SODIUM CHLORIDE 250 ML IV STA ×2 (09:51→22:03)
[2024-12-19] MEDS: MAGNESIUM 2GM/50ML STERILE WATER IVPB IVPB ONE (09:57)
[2024-12-19] MEDS: POTASSIUM PHOSPHATE 30 MM in SODIUM CHLORIDE 500 ML IVPB ONE (12:00)
[2024-12-19] MEDS ORDERED: MIDAZOLAM HCL 2 MG/2 ML SINGLE DOSE VIAL ONE (12:13)
[2024-12-19] MEDS ORDERED: FENTANYL CITRATE/PF 50 MCG/ML VIAL ONE (12:13)
[2024-12-19] MEDS: MIDAZOLAM HCL 2 MG/2 ML SINGLE DOSE VIAL IVPUSH ONE (12:17)
[2024-12-19] MEDS: FENTANYL CITRATE/PF 50 MCG/ML VIAL IVPUSH ONE (12:17)
[2024-12-19] MEDS ORDERED: GLUCAGON 1 MG KIT ONE (12:19)
[2024-12-19] MEDS: GLUCAGON 1 MG KIT IVPUSH ONE (12:22)
[2024-12-19] MEDS: MAGNESIUM SULFATE IN WATER 2 GM/50 ML IVPB IVPB ONE (15:19)
[2024-12-19] MEDS: POTASSIUM CHLORIDE ORAL LIQUID 20 MEQ/15 ML PO ONE (16:40)
[2024-12-19] MEDS: ACETAMINOPHEN 1000 MG/100 ML BAG IVPB SCH (16:40)
[2024-12-19] MEDS: TBO-FILGRASTIM 300 MCG/0.5 ML DISP.SYRINGE SQ ONE (19:46)
[2024-12-20 07:24] LABS: HEMATOCRIT 28.8 % (32.4-45.2); HEMOGLOBIN 9.3 GM/dL (10.7-15.3); MCH 24.8 pg (25.7-33.7); MCHC 32.4 g/dl (32.0-36.0); MEAN CELL VOLUME 76.5 fl (80-96); MEAN PLT VOLUME 10.3 fl (7.5-11.1); PLATELET COUNT 56 10^3/uL (134-434); RBC 3.76 M/mm3 (3.60-5.2); RDW 23.4 % (11.6-15.6); WHITE BLOOD COUNT 7.3 K/mm3 (4.0-10.0)
[2024-12-20] MEDS ORDERED: MIDODRINE HCL 2.5 MG TABLET ONE (08:15)
[2024-12-20 08:23] LABS: CHLORIDE 112 mmol/L (98-107); POTASSIUM 3.7 mmol/L (3.5-5.1); SODIUM 136 mmol/L (136-145)
[2024-12-20 08:26] LABS: ALBUMIN 1.3 g/dl (3.4-5.0); ANION GAP 7 mmol/L (4-13); BLOOD UREA NITROGEN 14.4 mg/dL (7-18); CO2 17 mmol/L (21-32); GLUCOSE,RANDOM 75 mg/dL (74-106); MAGNESIUM 1.6 mg/dL (1.8-2.4)
[2024-12-20 08:28] LABS: CALCIUM 6.8 mg/dL (8.5-10.1); CREATININE 0.5 mg/dL (0.55-1.3); SGOT/AST 25 U/L (15-37); SGPT/ALT 17 U/L (13-61)
[2024-12-20 08:30] LABS: BILIRUBIN,TOTAL 0.8 mg/dL (0.2-1); TOT PROT 3.8 g/dl (6.4-8.2)
[2024-12-20 08:31] LABS: ALK PHOS 74 U/L (45-117)
[2024-12-20 09:29] LABS: ANISOCYTOSIS 2+; CORRECTED WBC 6.58 K/mm3; MACROCYTOSIS 1+
[2024-12-20 09:31] LABS: PLATELET ESTIMATE DECREASED
[2024-12-20] MEDS: IOHEXOL (OMNIPAQUE IV) 350 MG/ML - 100 ML BOTTLE GT ONE (14:00)
[2024-12-21 10:31] LABS: HEMATOCRIT 33.5 % (32.4-45.2); HEMOGLOBIN 10.6 GM/dL (10.7-15.3); MCH 24.4 pg (25.7-33.7); MCHC 31.7 g/dl (32.0-36.0); MEAN CELL VOLUME 76.9 fl (80-96); PLATELET COUNT 65 10^3/uL (134-434); RBC 4.36 M/mm3 (3.60-5.2); RDW 24.2 % (11.6-15.6); WHITE BLOOD COUNT 17.2 K/mm3 (4.0-10.0)
[2024-12-21 10:41] LABS: POTASSIUM 3.6 mmol/L (3.5-5.1)
[2024-12-21 10:43] LABS: CALCIUM 7.1 mg/dL (8.5-10.1)
[2024-12-21 10:44] LABS: ALBUMIN 1.4 g/dl (3.4-5.0); BLOOD UREA NITROGEN 16.3 mg/dL (7-18); MAGNESIUM 1.4 mg/dL (1.8-2.4)
[2024-12-21 10:47] LABS: CREATININE 0.5 mg/dL (0.55-1.3); PHOSPHOROUS 2.2 mg/dL (2.5-4.9)
[2024-12-21 10:48] LABS: BILIRUBIN,TOTAL 0.7 mg/dL (0.2-1)
[2024-12-21 10:49] LABS: TOT PROT 4.3 g/dl (6.4-8.2)
[2024-12-21 11:31] LABS: ANISOCYTOSIS 0; MACROCYTOSIS 0
[2024-12-21] MEDS: MAGNESIUM 2GM/50ML STERILE WATER IVPB IVPB ONE (14:10)
[2024-12-22 08:10] LABS: HEMATOCRIT 33.5 % (32.4-45.2); HEMOGLOBIN 10.8 GM/dL (10.7-15.3); MCH 24.8 pg (25.7-33.7); MCHC 32.3 g/dl (32.0-36.0); MEAN CELL VOLUME 76.5 fl (80-96); MEAN PLT VOLUME 8.9 fl (7.5-11.1); PLATELET COUNT 75 10^3/uL (134-434); RBC 4.38 M/mm3 (3.60-5.2); RDW 24.8 % (11.6-15.6); WHITE BLOOD COUNT 22.7 K/mm3 (4.0-10.0)
[2024-12-22 08:26] LABS: POTASSIUM 3.1 mmol/L (3.5-5.1)
[2024-12-22 08:34] LABS: ALBUMIN 1.5 g/dl (3.4-5.0); BLOOD UREA NITROGEN 14.6 mg/dL (7-18)
[2024-12-22 08:35] LABS: CALCIUM 7.4 mg/dL (8.5-10.1)
[2024-12-22 08:36] LABS: CREATININE 0.5 mg/dL (0.55-1.3)
[2024-12-22 08:37] LABS: PHOSPHOROUS 2.4 mg/dL (2.5-4.9)
[2024-12-22 08:38] LABS: BILIRUBIN,TOTAL 0.5 mg/dL (0.2-1); TOT PROT 4.6 g/dl (6.4-8.2)
[2024-12-22] MEDS: POTASSIUM CHLORIDE ORAL LIQUID 20 MEQ/15 ML PO SCH (10:42)
[2024-12-22 11:56] LABS: ANISOCYTOSIS 1+; MACROCYTOSIS 0; OVALOCYTE 0; TARGET CELLS 1+
[2024-12-22] MEDS: POTASSIUM PHOSPHATE 30 MM in SODIUM CHLORIDE 500 ML IVPB ONE (15:16)
[2024-12-22] MEDS: IOHEXOL (OMNIPAQUE IV) 350 MG/ML - 100 ML BOTTLE GT ONE (16:10)
[2024-12-22] MEDS: BANATROL PLUS POWDER PACKET GT SCH (16:11)
[2024-12-23 07:15] LABS: HEMATOCRIT 32.6 % (32.4-45.2); HEMOGLOBIN 10.3 GM/dL (10.7-15.3); MCHC 31.7 g/dl (32.0-36.0); MEAN CELL VOLUME 78.7 fl (80-96); MEAN PLT VOLUME 9.2 fl (7.5-11.1); PLATELET COUNT 93 10^3/uL (134-434); RBC 4.14 M/mm3 (3.60-5.2)
[2024-12-23 07:33] LABS: POTASSIUM 4.4 mmol/L (3.5-5.1)
[2024-12-23 07:37] LABS: BLOOD UREA NITROGEN 11.8 mg/dL (7-18); CALCIUM 7.8 mg/dL (8.5-10.1)
[2024-12-23 07:38] LABS: ALBUMIN 1.6 g/dl (3.4-5.0); MAGNESIUM 1.7 mg/dL (1.8-2.4)
[2024-12-23 07:41] LABS: CREATININE 0.5 mg/dL (0.55-1.3); PHOSPHOROUS 4.1 mg/dL (2.5-4.9)
[2024-12-23 07:43] LABS: BILIRUBIN,TOTAL 0.4 mg/dL (0.2-1); TOT PROT 4.8 g/dl (6.4-8.2)
[2024-12-23] MEDS: MAGNESIUM SULFATE IN WATER 2 GM/50 ML IVPB IVPB ONE (10:07)
[2024-12-23] MEDS: ASCORBIC ACID 500 MG TABLET (FP) PO SCH (10:08)
[2024-12-23 10:15] LABS: ANISOCYTOSIS 1+; MACROCYTOSIS 1+; OVALOCYTE 1+
[2024-12-23] MEDS ORDERED: LOPERAMIDE HCL 2 MG CAPSULE PO PRN (13:07)
[2024-12-23] MEDS: MIDODRINE HCL 5 MG TABLET PO SCH (14:16)
[2024-12-23] MEDS: DEXTROSE 5%-LACTATED RINGERS 1,000 ML IV SCH (14:16)
[2024-12-23] MEDS: LOPERAMIDE HCL 2 MG CAPSULE PO ONE (14:16)
[2024-12-24 08:25] LABS: HEMATOCRIT 33.6 % (32.4-45.2); HEMOGLOBIN 10.4 GM/dL (10.7-15.3); MCH 24.5 pg (25.7-33.7); MEAN PLT VOLUME 9.4 fl (7.5-11.1); PLATELET COUNT 117 10^3/uL (134-434); RBC 4.25 M/mm3 (3.60-5.2); RDW 25.6 % (11.6-15.6); WHITE BLOOD COUNT 17.1 K/mm3 (4.0-10.0)
[2024-12-24 08:45] LABS: POTASSIUM 4.9 mmol/L (3.5-5.1)
[2024-12-24 08:54] LABS: ALBUMIN 1.7 g/dl (3.4-5.0)
[2024-12-24 08:56] LABS: BILIRUBIN,TOTAL 0.4 mg/dL (0.2-1)
[2024-12-24 08:57] LABS: CALCIUM 8.3 mg/dL (8.5-10.1)
[2024-12-24 08:58] LABS: CREATININE 0.6 mg/dL (0.55-1.3); PHOSPHOROUS 3.5 mg/dL (2.5-4.9)
[2024-12-24 10:38] LABS: ANISOCYTOSIS 1+; MACROCYTOSIS 0; OVALOCYTE 1+
[2024-12-24] MEDS: ZINC SULFATE 220 MG CAPSULE (FP) PO SCH (10:55)
[2024-12-24] MEDS: PANTOPRAZOLE 40 MG TABLET PO SCH (10:55)
[2024-12-24] MEDS: LOPERAMIDE HCL 2 MG CAPSULE PO SCH (11:34)
[2024-12-24] MEDS: MIDODRINE HCL 5 MG TABLET PO SCH (13:39)
[2024-12-25] MEDS ORDERED: LOPERAMIDE HCL 2 MG CAPSULE PO PRN
[2024-12-25 07:41] LABS: HEMATOCRIT 34.6 % (32.4-45.2); HEMOGLOBIN 10.7 GM/dL (10.7-15.3); MCH 24.5 pg (25.7-33.7); MCHC 31.1 g/dl (32.0-36.0); MEAN PLT VOLUME 8.7 fl (7.5-11.1); PLATELET COUNT 145 10^3/uL (134-434); RBC 4.38 M/mm3 (3.60-5.2); RDW 26.2 % (11.6-15.6); WHITE BLOOD COUNT 17.5 K/mm3 (4.0-10.0)
[2024-12-25 07:57] LABS: POTASSIUM 3.3 mmol/L (3.5-5.1)
[2024-12-25] MEDS: LOPERAMIDE HCL 2 MG CAPSULE PO SCH (08:12)
[2024-12-25 08:13] LABS: ALBUMIN 1.8 g/dl (3.4-5.0); BLOOD UREA NITROGEN 13.1 mg/dL (7-18); CALCIUM 8.2 mg/dL (8.5-10.1); MAGNESIUM 1.7 mg/dL (1.8-2.4)
[2024-12-25 08:16] LABS: CREATININE 0.5 mg/dL (0.55-1.3); PHOSPHOROUS 3.9 mg/dL (2.5-4.9)
[2024-12-25 08:17] LABS: BILIRUBIN,TOTAL 0.6 mg/dL (0.2-1)
[2024-12-25 08:18] LABS: TOT PROT 5.3 g/dl (6.4-8.2)
[2024-12-25 09:13] LABS: ANISOCYTOSIS 1+; MACROCYTOSIS 1+
[2024-12-25] MEDS: FOLIC ACID 1 MG TABLET (FP) PO SCH (09:13)
[2024-12-25] MEDS: MAGNESIUM SULFATE IN WATER 2 GM/50 ML IVPB IVPB ONE (09:35)
[2024-12-25] MEDS: KCL 20 MEQ PREMIX BAG 20 MEQ/100 ML INFUS.BAG IVPB ONE (11:34)
[2024-12-25] MEDS ORDERED: LIDOCAINE VISCOUS 2% ORAL/TOP 15 ML UNIT-DOSE CUP MM PRN (15:35)
[2024-12-25] MEDS ORDERED: PHENOL 177 ML SPRAY BOTTLE MM PRN (15:35)
[2024-12-25] MEDS: LYTES/YERBA SANTA 60 ML SPRAY MM SCH (18:27)
[2024-12-25] MEDS: MAG HYDROX/ALH/SMC/DPHA/LIDO 240 ML MOUTHWASH MM SCH (18:27)
[2024-12-25] MEDS: LEVALBUTEROL HCL 0.63 MG/3 ML VIAL.NEB. IH SCH (20:30)
[2024-12-25] MEDS: IPRATROPIUM BR 0.02% 0.5 MG/2.5 ML VIAL.NEB. NEB SCH (20:30)
[2024-12-25] MEDS: HEPARIN NA (PORCINE) 5,000 UNITS/ML 1ML VIAL SQ SCH (21:48)
[2024-12-25] MEDS: PYRIDOXINE HCL 100 MG/1 ML VIAL IVPB SCH (21:53)
[2024-12-25] MEDS ORDERED: CHLORHEXIDINE GLUCONATE 4% CLEANSER FOR DECOLONIZATION TP SCH (22:00)
[2024-12-25] MEDS: LOPERAMIDE HCL 2 MG CAPSULE GT SCH (23:08)
[2024-12-26] MEDS ORDERED: MAGNESIUM OXIDE 400 MG TABLET (FP) PO SCH (10:00)
[2024-12-26] MEDS ORDERED: PANTOPRAZOLE 40 MG TABLET PO SCH (10:00)
[2024-12-26] MEDS ORDERED: MAGNESIUM SULFATE IN WATER 2 GM/50 ML IVPB IVPB ONE (10:00)
[2024-12-26] MEDS: ZINC SULFATE 220 MG CAPSULE (FP) PEG SCH (11:28)
[2024-12-26] MEDS: FOLIC ACID 1 MG TABLET (FP) PEG SCH (11:28)
[2024-12-26] MEDS: MAGNESIUM OXIDE 400 MG TABLET (FP) PEG SCH (11:28)
[2024-12-26] MEDS: LEVOTHYROXINE SODIUM 100 MCG 5 ML VIAL IVPUSH SCH (11:29)
[2024-12-26] MEDS: ASCORBIC ACID 500 MG/5 ML UNIT DOSE CUP GT SCH (11:29)
[2024-12-26] MEDS: FAMOTIDINE 20 MG/2.5 ML ORAL LIQUID PEG SCH (11:45)
[2024-12-26] MEDS: PETROLATUM, WHITE 30 GM TUBE TP SCH (13:33)
[2024-12-26] MEDS: LOPERAMIDE HCL 2 MG CAPSULE GT SCH (14:13)
[2024-12-26] MEDS: LACTOBACILLUS ACIDOPHILUS 1 TABLET PO SCH (22:34)
[2024-12-26] MEDS: CHOLESTYRAMINE/NUTRASWEET 4 GM PACKET PO SCH (22:34)
[2024-12-27 08:03] LABS: HEMATOCRIT 40.9 % (32.4-45.2); HEMOGLOBIN 13.1 GM/dL (10.7-15.3); MCH 25.3 pg (25.7-33.7); MCHC 32.1 g/dl (32.0-36.0); MEAN CELL VOLUME 78.9 fl (80-96); MEAN PLT VOLUME 8.7 fl (7.5-11.1); PLATELET COUNT 227 10^3/uL (134-434); RBC 5.19 M/mm3 (3.60-5.2); RDW 25.2 % (11.6-15.6)
[2024-12-27 08:13] LABS: POTASSIUM 4.3 mmol/L (3.5-5.1)
[2024-12-27 08:15] LABS: CALCIUM 9.1 mg/dL (8.5-10.1)
[2024-12-27 08:16] LABS: BLOOD UREA NITROGEN 19.8 mg/dL (7-18)
[2024-12-27 08:19] LABS: CREATININE 1.4 mg/dL (0.55-1.3); PHOSPHOROUS 5.6 mg/dL (2.5-4.9)
[2024-12-27 08:20] LABS: BILIRUBIN,TOTAL 0.9 mg/dL (0.2-1); TOT PROT 6.7 g/dl (6.4-8.2)
[2024-12-27 08:24] LABS: ALBUMIN 2.3 g/dl (3.4-5.0)
[2024-12-27] MEDS: SODIUM CHLORIDE 1,000 ML IV SCH ×2 (10:09→12:05)
[2024-12-27 10:35] LABS: N-TERMINAL BNP 15117.1 pg/ml (5-125)
[2024-12-27] MEDS: SODIUM CHLORIDE 500 ML IV STA ×2 (11:09→12:05)
[2024-12-27 11:25] LABS: ANISOCYTOSIS 2+; MACROCYTOSIS 0
[2024-12-27] MEDS: SODIUM CHLORIDE 1,000 ML IV STA (12:05)
[2024-12-28 02:02] LABS: EPI CELLS >36 /uL (0-25.1); HYALINE CASTS 7 /uL (0-3.1); URINE APPEARANCE TURBID; URINE BACTERIA 116 /uL (0-1359); URINE BILIRUBIN 1+ (NEGATIVE); URINE COLOR DK YELLOW; URINE GLUCOSE (UA) TRACE (NEGATIVE); URINE KETONE TRACE (NEGATIVE); URINE LEUK ESTERASE NEGATIVE (NEGATIVE); URINE NITRITE NEGATIVE (NEGATIVE); URINE PROTEIN 1+ (NEGATIVE); URINE RBC 14 /uL (0-23.9); URINE UROBILINOGEN 0.2 mg/dL (0.2-1.0)
[2024-12-28 04:58] LABS: URINE CRYSTALS PRESENT /hpf; YEAST NONE SEEN (NEGATIVE)
[2024-12-28 10:21] LABS: CALCIUM 8.7 mg/dL (8.5-10.1)
[2024-12-28 10:22] LABS: ALBUMIN 2.2 g/dl (3.4-5.0); BLOOD UREA NITROGEN 32.1 mg/dL (7-18)
[2024-12-28 10:27] LABS: BILIRUBIN,TOTAL 0.6 mg/dL (0.2-1); TOT PROT 6.2 g/dl (6.4-8.2)
[2024-12-28 11:57] LABS: BASO % 0.3 % (0-2.0); EOS % 0.1 % (0-4.5); HEMATOCRIT 41.7 % (32.4-45.2); HEMOGLOBIN 12.8 GM/dL (10.7-15.3); LYMPH % 5.7 % (8-40); MCH 25.1 pg (25.7-33.7); MCHC 30.8 g/dl (32.0-36.0); MEAN CELL VOLUME 81.6 fl (80-96); MONO % 5.4 % (3.8-10.2); NEUT % 88.5 % (42.8-82.8); PLATELET COUNT 235 10^3/uL (134-434); RDW 29.3 % (11.6-15.6); WHITE BLOOD COUNT 18.9 K/mm3 (4.0-10.0)
[2024-12-28] MEDS: SODIUM CHLORIDE 1,000 ML IV SCH (12:20)
[2024-12-28] MEDS: ONDANSETRON 4 MG/2 ML VIAL IVPUSH PRN (14:43)
[2024-12-28] MEDS: TRIMETHOBENZAMIDE HCL 200MG/2ML INJ IM ONE (21:56)
[2024-12-28] MEDS: ACETAMINOPHEN 1000 MG/100 ML BAG IVPB ONE (22:01)
[2024-12-28] MEDS: CHOLESTYRAMINE/NUTRASWEET 4 GM PACKET PEG SCH (22:09)
[2024-12-29] MEDS: SODIUM CHLORIDE 1,000 ML IV STA ×2 (04:35→06:00)
[2024-12-29] MEDS: NOREPINEPHRINE BITARTRATE 4,000 MCG in DEXTROSE 5%-WATER - 496 ML IV SCH (05:00)
[2024-12-29 06:00] LABS: ARTERIAL BLD GAS O2 SATURATION 99.3 % (95-98); ARTERIAL BLOOD GAS BASE EXCESS -20.2 mmol/L (-2-2); ARTERIAL BLOOD GAS PCO2 < 16.70 mmHg (35-45); ARTERIAL BLOOD GAS PO2 219.5 mmHg (80-100)
[2024-12-29 06:23] LABS: ARTERIAL BLOOD GAS pH 7.195 (7.350-7.450)
[2024-12-29] MEDS: SODIUM BICARBONATE 8.4% 50 MEQ/50 ML DISP.SYRIN IVPUSH ONE (06:43)
[2024-12-29] MEDS: PIPERACILLIN/TAZOB 2.25 GM 2.25 GM/50 ML BAG IVPB SCH ×2 (07:06→16:09)
[2024-12-29 08:12] LABS: HEMATOCRIT 40.8 % (32.4-45.2); HEMOGLOBIN 11.9 GM/dL (10.7-15.3); MCH 25.1 pg (25.7-33.7); MCHC 29.2 g/dl (32.0-36.0); MEAN PLT VOLUME 8.8 fl (7.5-11.1); PLATELET COUNT 203 10^3/uL (134-434); RBC 4.75 M/mm3 (3.60-5.2); RDW 28.9 % (11.6-15.6)
[2024-12-29 08:23] LABS: BLOOD UREA NITROGEN 43.8 mg/dL (7-18); CALCIUM 8.5 mg/dL (8.5-10.1); MAGNESIUM 2.9 mg/dL (1.8-2.4)
[2024-12-29 08:24] LABS: ALBUMIN 1.7 g/dl (3.4-5.0)
[2024-12-29 08:26] LABS: CREATININE 3.1 mg/dL (0.55-1.3)
[2024-12-29 08:27] LABS: BILIRUBIN,TOTAL 0.6 mg/dL (0.2-1); PHOSPHOROUS 8.9 mg/dL (2.5-4.9); TOT PROT 5.1 g/dl (6.4-8.2)
[2024-12-29] MEDS: PANTOPRAZOLE SODIUM 40 MG VIAL IVPUSH SCH (09:18)
[2024-12-29] MEDS: HYDROCORTISONE SOD SUCCINATE 100 MG/2 ML VIAL IVPUSH SCH (09:19)
[2024-12-29] MEDS: LACTATED RINGERS SOLUTION 1,000 ML/1,000 ML INFUS.BAG IV SCH ×2 (09:19→14:12)
[2024-12-29] MEDS: FLUDROCORTISONE ACETATE 0.1 MG TABLET (FP) PO SCH (09:20)
[2024-12-29] MEDS: VASopressin 40 UNITS/100 ML BAG IV SCH (09:30)
[2024-12-29 13:31] LABS: ARTERIAL BLD GAS O2 SATURATION 96.8 % (95-98); ARTERIAL BLOOD GAS BASE EXCESS -11.6 mmol/L (-2-2); ARTERIAL BLOOD GAS PO2 86.9 mmHg (80-100); ARTERIAL BLOOD GAS pH 7.392 (7.350-7.450)
[2024-12-29 13:34] LABS: ALLENS TEST POSITIVE
[2024-12-29 13:35] LABS: LACTIC ACID 7.3 mmol/L (0.4-2.0)
[2024-12-29] MEDS: MUPIROCIN 2% TOPICAL OINTMENT FOR DECOLONIZATION NS SCH (14:13)
[2024-12-29] MEDS: CHLORHEXIDINE GLUCONATE 4% CLEANSER FOR DECOLONIZATION TP SCH (21:17)
[2024-12-30] MEDS ORDERED: PHENOL 177 ML SPRAY BOTTLE MM PRN (03:33)
[2024-12-30] MEDS ORDERED: ONDANSETRON 4 MG/2 ML VIAL IVPUSH PRN (03:33)
[2024-12-30] MEDS: HEPARIN NA (PORCINE) 5,000 UNITS/ML 1ML VIAL SQ SCH (06:41)
[2024-12-30] MEDS: MAG HYDROX/ALH/SMC/DPHA/LIDO 240 ML MOUTHWASH MM SCH (06:42)
[2024-12-30 07:45] LABS: HEMATOCRIT 24.9 % (32.4-45.2); MCH 25.7 pg (25.7-33.7); MCHC 31.9 g/dl (32.0-36.0); MEAN CELL VOLUME 80.6 fl (80-96); MEAN PLT VOLUME 8.6 fl (7.5-11.1); PLATELET COUNT 113 10^3/uL (134-434); RBC 3.09 M/mm3 (3.60-5.2); RDW 27.4 % (11.6-15.6); WHITE BLOOD COUNT 15.3 K/mm3 (4.0-10.0)
[2024-12-30 08:05] LABS: POTASSIUM 3.4 mmol/L (3.5-5.1)
[2024-12-30] MEDS: PIPERACILLIN/TAZOB 3.375 GM 3.375 GM in DEXTROSE 5%-WATER - 50 ML IVPB SCH (08:15)
[2024-12-30 08:27] LABS: ALBUMIN 1.4 g/dl (3.4-5.0)
[2024-12-30 08:28] LABS: CREATININE 2.4 mg/dL (0.55-1.3); MAGNESIUM 2.1 mg/dL (1.8-2.4)
[2024-12-30 08:30] LABS: PHOSPHOROUS 4.4 mg/dL (2.5-4.9)
[2024-12-30 08:31] LABS: BILIRUBIN,TOTAL 0.5 mg/dL (0.2-1); TOT PROT 4.2 g/dl (6.4-8.2)
[2024-12-30] MEDS: ASCORBIC ACID 500 MG/5 ML UNIT DOSE CUP GT SCH (09:11)
[2024-12-30] MEDS: ZINC SULFATE 220 MG CAPSULE (FP) PEG SCH (09:12)
[2024-12-30] MEDS: FOLIC ACID 1 MG TABLET (FP) PEG SCH (09:12)
[2024-12-30] MEDS: PYRIDOXINE HCL 100 MG/1 ML VIAL IVPB SCH (09:13)
[2024-12-30] MEDS: LEVOTHYROXINE SODIUM 100 MCG 5 ML VIAL IVPUSH SCH (09:13)
[2024-12-30] MEDS: CHOLESTYRAMINE/NUTRASWEET 4 GM PACKET PEG SCH (09:13)
[2024-12-30 09:16] LABS: ANISOCYTOSIS 3+; MACROCYTOSIS 0
[2024-12-30] MEDS: POTASSIUM CHLORIDE ORAL LIQUID 20 MEQ/15 ML PO ONE (09:19)
[2024-12-30] MEDS: LYTES/YERBA SANTA 60 ML SPRAY MM SCH (09:19)
[2024-12-30] MEDS: IPRATROPIUM BR 0.02% 0.5 MG/2.5 ML VIAL.NEB. NEB SCH (09:38)
[2024-12-30] MEDS: LEVALBUTEROL HCL 0.63 MG/3 ML VIAL.NEB. IH SCH (09:38)
[2024-12-30] MEDS: LOPERAMIDE HCL 2 MG CAPSULE GT SCH (11:14)
[2024-12-30] MEDS: PETROLATUM, WHITE 30 GM TUBE TP SCH (11:24)
[2024-12-30 12:14] LABS: HEMATOCRIT 24.7 % (32.4-45.2); HEMOGLOBIN 7.8 GM/dL (10.7-15.3); MCH 25.2 pg (25.7-33.7); MCHC 31.4 g/dl (32.0-36.0); MEAN CELL VOLUME 80.3 fl (80-96); MEAN PLT VOLUME 8.5 fl (7.5-11.1); PLATELET COUNT 110 10^3/uL (134-434); RBC 3.08 M/mm3 (3.60-5.2); RDW 27.5 % (11.6-15.6); WHITE BLOOD COUNT 15.3 K/mm3 (4.0-10.0)
[2024-12-30 13:18] LABS: ANISOCYTOSIS 1+; MACROCYTOSIS 0; TARGET CELLS 1+
[2024-12-30] MEDS: VANCOMYCIN 1 GM PREMIX (F) 1 GM/200 ML BAG IVPB ONE (20:24)
[2024-12-30] MEDS: LACTOBACILLUS ACIDOPHILUS 1 TABLET PO SCH (21:55)
[2024-12-30] MEDS: PANTOPRAZOLE SODIUM 40 MG VIAL IVPUSH SCH (21:55)
[2024-12-31 06:59] LABS: HEMATOCRIT 22.1 % (32.4-45.2); MCH 25.4 pg (25.7-33.7); MCHC 31.4 g/dl (32.0-36.0); MEAN CELL VOLUME 80.8 fl (80-96); MEAN PLT VOLUME 8.8 fl (7.5-11.1); PLATELET COUNT 78 10^3/uL (134-434); RBC 2.73 M/mm3 (3.60-5.2); RDW 28.2 % (11.6-15.6); WHITE BLOOD COUNT 11.8 K/mm3 (4.0-10.0)
[2024-12-31 07:18] LABS: POTASSIUM 3.1 mmol/L (3.5-5.1)
[2024-12-31 07:19] LABS: HEMOGLOBIN 6.9 GM/dL (10.7-15.3)
[2024-12-31 07:24] LABS: ALBUMIN 1.4 g/dl (3.4-5.0); CALCIUM 7.2 mg/dL (8.5-10.1)
[2024-12-31 07:25] LABS: BLOOD UREA NITROGEN 39.4 mg/dL (7-18)
[2024-12-31 07:28] LABS: BILIRUBIN,TOTAL 0.5 mg/dL (0.2-1); CREATININE 1.6 mg/dL (0.55-1.3); TOT PROT 4.2 g/dl (6.4-8.2)
[2024-12-31 08:37] LABS: MAGNESIUM 1.8 mg/dL (1.8-2.4)
[2024-12-31 08:39] LABS: PHOSPHOROUS 3.8 mg/dL (2.5-4.9)
[2024-12-31] MEDS: KCL 10 MEQ IVPB 10 MEQ/100 ML INFUS.BAG IVPB SCH (09:33)
[2024-12-31] MEDS: MAGNESIUM 2GM/50ML STERILE WATER IVPB IVPB ONE (09:33)
[2024-12-31 09:47] LABS: ANISOCYTOSIS 1+
[2024-12-31] MEDS ORDERED: POTASSIUM CHLORIDE ORAL LIQUID 20 MEQ/15 ML PO ONE (11:00)
[2024-12-31 15:07] LABS: HEMATOCRIT 27.7 % (32.4-45.2); HEMOGLOBIN 8.7 GM/dL (10.7-15.3); MCH 25.8 pg (25.7-33.7); MCHC 31.4 g/dl (32.0-36.0); MEAN CELL VOLUME 82.1 fl (80-96); MEAN PLT VOLUME 8.8 fl (7.5-11.1); PLATELET COUNT 74 10^3/uL (134-434); RBC 3.37 M/mm3 (3.60-5.2); RDW 26.7 % (11.6-15.6)
[2024-12-31 15:13] LABS: WHITE BLOOD COUNT 14.1 K/mm3 (4.0-10.0)
[2024-12-31] MEDS ORDERED: ERYTHROMYCIN *INJECTION* 500 MG VIAL IVPB ONE (15:15)
[2024-12-31] MEDS: ERYTHROMYCIN INJECTION - 250 MG in SODIUM CHLORIDE 100 ML IVPB ONE (16:10)
[2024-12-31] MEDS ORDERED: fentaNYL CITRATE 250 MCG/5 ML VIAL ONE (17:05)
[2024-12-31] MEDS ORDERED: MIDAZOLAM HCL 5 MG/1 ML Single Dose Vial ONE (17:06)
[2024-12-31] MEDS: BENZOCAINE 20% UNIT DOSE SPRAY MM ONE (17:10)
[2024-12-31] MEDS: fentaNYL CITRATE 250 MCG/5 ML VIAL IVPUSH ONE (17:20)
[2024-12-31] MEDS: MIDAZOLAM HCL 5 MG/1 ML Single Dose Vial IVPUSH ONE (17:20)
[2024-12-31] MEDS: HYDROCORTISONE SOD SUCCINATE 100 MG/2 ML VIAL IVPUSH SCH (21:24)
[2025-01-01 06:49] LABS: CHLORIDE 109 mmol/L (98-107); SODIUM 140 mmol/L (136-145)
[2025-01-01 06:54] LABS: ALBUMIN 1.4 g/dl (3.4-5.0); BLOOD UREA NITROGEN 28.7 mg/dL (7-18); CALCIUM 7.2 mg/dL (8.5-10.1); CO2 24 mmol/L (21-32); GLUCOSE,RANDOM 82 mg/dL (74-106); MAGNESIUM 2.1 mg/dL (1.8-2.4)
[2025-01-01 06:57] LABS: PHOSPHOROUS 3.4 mg/dL (2.5-4.9); SGOT/AST 150 U/L (15-37); SGPT/ALT 338 U/L (13-61)
[2025-01-01 06:59] LABS: BILIRUBIN,TOTAL 0.6 mg/dL (0.2-1); TOT PROT 4.4 g/dl (6.4-8.2)
[2025-01-01 07:00] LABS: ALK PHOS 162 U/L (45-117)
[2025-01-01 07:01] LABS: ANION GAP 7 mmol/L (4-13); POTASSIUM 2.7 mmol/L (3.5-5.1)
[2025-01-01 07:28] LABS: HEMATOCRIT 26.2 % (32.4-45.2); HEMOGLOBIN 8.4 GM/dL (10.7-15.3); MCH 25.8 pg (25.7-33.7); MEAN CELL VOLUME 80.6 fl (80-96); MEAN PLT VOLUME 9.2 fl (7.5-11.1); PLATELET COUNT 64 10^3/uL (134-434); RBC 3.25 M/mm3 (3.60-5.2); RDW 26.4 % (11.6-15.6)
[2025-01-01] MEDS: POTASSIUM CHLORIDE ORAL LIQUID 20 MEQ/15 ML PO ONE ×2 (08:14→09:10)
[2025-01-01] MEDS ORDERED: LOPERAMIDE HCL 2 MG CAPSULE GT PRN (08:39)
[2025-01-01 08:57] LABS: ANISOCYTOSIS 1+; MACROCYTOSIS 1+
[2025-01-01] MEDS: LIDOCAINE VISCOUS 2% ORAL/TOP 15 ML UNIT-DOSE CUP MM PRN (09:05)
[2025-01-01 12:17] LABS: HEMATOCRIT 28.4 % (32.4-45.2); MCH 25.5 pg (25.7-33.7); MCHC 31.5 g/dl (32.0-36.0); MEAN CELL VOLUME 80.9 fl (80-96); MEAN PLT VOLUME 8.8 fl (7.5-11.1); PLATELET COUNT 72 10^3/uL (134-434); RBC 3.51 M/mm3 (3.60-5.2); RDW 25.3 % (11.6-15.6)
[2025-01-01 12:26] LABS: WHITE BLOOD COUNT 13.5 K/mm3 (4.0-10.0)
[2025-01-01 12:36] LABS: POTASSIUM 3.5 mmol/L (3.5-5.1)
[2025-01-01 12:44] LABS: CALCIUM 7.5 mg/dL (8.5-10.1)
[2025-01-01 12:45] LABS: BLOOD UREA NITROGEN 24.9 mg/dL (7-18)
[2025-01-01 12:48] LABS: CREATININE 0.9 mg/dL (0.55-1.3)
[2025-01-01 12:53] LABS: ANISOCYTOSIS 2+; MACROCYTOSIS 1+
[2025-01-01] MEDS: HYDROCORTISONE SOD SUCCINATE 100 MG/2 ML VIAL IVPUSH SCH (21:55)
[2025-01-02 06:59] LABS: HEMATOCRIT 31.1 % (32.4-45.2); HEMOGLOBIN 9.9 GM/dL (10.7-15.3); MCH 26.2 pg (25.7-33.7); MEAN PLT VOLUME 9.2 fl (7.5-11.1); PLATELET COUNT 75 10^3/uL (134-434); RBC 3.79 M/mm3 (3.60-5.2); RDW 25.8 % (11.6-15.6); WHITE BLOOD COUNT 13.4 K/mm3 (4.0-10.0)
[2025-01-02 07:15] LABS: CHLORIDE 112 mmol/L (98-107); SODIUM 143 mmol/L (136-145)
[2025-01-02 07:18] LABS: CALCIUM 7.5 mg/dL (8.5-10.1)
[2025-01-02 07:19] LABS: ALBUMIN 1.7 g/dl (3.4-5.0); BLOOD UREA NITROGEN 22.5 mg/dL (7-18); CO2 24 mmol/L (21-32); GLUCOSE,RANDOM 108 mg/dL (74-106); MAGNESIUM 1.8 mg/dL (1.8-2.4)
[2025-01-02 07:22] LABS: CREATININE 0.8 mg/dL (0.55-1.3); PHOSPHOROUS 2.4 mg/dL (2.5-4.9); SGOT/AST 85 U/L (15-37); SGPT/ALT 265 U/L (13-61)
[2025-01-02 07:24] LABS: BILIRUBIN,TOTAL 0.6 mg/dL (0.2-1); TOT PROT 5.2 g/dl (6.4-8.2)
[2025-01-02 07:31] LABS: ALK PHOS 244 U/L (45-117); ANION GAP 8 mmol/L (4-13); POTASSIUM 2.8 mmol/L (3.5-5.1)
[2025-01-02] MEDS: MAGNESIUM SULFATE IN WATER 2 GM/50 ML IVPB IVPB ONE (09:14)
[2025-01-02] MEDS: FLUDROCORTISONE ACETATE 0.1 MG TABLET (FP) PO SCH (09:15)
[2025-01-02] MEDS: POTASSIUM CHLORIDE ORAL LIQUID 20 MEQ/15 ML PO ONE (09:15)
[2025-01-02] MEDS ORDERED: ONDANSETRON 4 MG/2 ML VIAL IVPUSH PRN (09:36)
[2025-01-02] MEDS ORDERED: PHENOL 177 ML SPRAY BOTTLE MM PRN (09:36)
[2025-01-02] MEDS ORDERED: LOPERAMIDE HCL 2 MG CAPSULE GT PRN (09:36)
[2025-01-02] MEDS ORDERED: LIDOCAINE VISCOUS 2% ORAL/TOP 15 ML UNIT-DOSE CUP MM PRN (09:36)
[2025-01-02] MEDS: LYTES/YERBA SANTA 60 ML SPRAY MM SCH (10:33)
[2025-01-02] MEDS: PANTOPRAZOLE SODIUM 40 MG VIAL IVPUSH SCH (10:33)
[2025-01-02] MEDS: POTASSIUM PHOSPHATE 30 MM in SODIUM CHLORIDE 500 ML IVPB ONE (11:12)
[2025-01-02] MEDS: MAG HYDROX/ALH/SMC/DPHA/LIDO 240 ML MOUTHWASH MM SCH (12:51)
[2025-01-02] MEDS: IPRATROPIUM BR 0.02% 0.5 MG/2.5 ML VIAL.NEB. NEB SCH (13:40)
[2025-01-02] MEDS: LEVALBUTEROL HCL 0.63 MG/3 ML VIAL.NEB. IH SCH (13:40)
[2025-01-02] MEDS: PIPERACILLIN/TAZOB 2.25 GM 2.25 GM/50 ML BAG IVPB SCH (14:28)
[2025-01-02] MEDS: PETROLATUM, WHITE 30 GM TUBE TP SCH (14:29)
[2025-01-02] MEDS: HYDROCORTISONE SOD SUCCINATE 100 MG/2 ML VIAL IVPUSH SCH (21:30)
[2025-01-02] MEDS: CHLORHEXIDINE GLUCONATE 4% CLEANSER FOR DECOLONIZATION TP SCH (21:36)
[2025-01-02] MEDS: MUPIROCIN 2% TOPICAL OINTMENT FOR DECOLONIZATION NS SCH (21:36)
[2025-01-02] MEDS: LACTOBACILLUS ACIDOPHILUS 1 TABLET PO SCH (21:37)
[2025-01-02] MEDS: CHOLESTYRAMINE/NUTRASWEET 4 GM PACKET PEG SCH (21:37)
[2025-01-02] MEDS: PYRIDOXINE HCL 100 MG/1 ML VIAL IVPB SCH (21:38)
[2025-01-03 07:59] LABS: HEMOGLOBIN 9.4 GM/dL (10.7-15.3); MCH 25.9 pg (25.7-33.7); MCHC 31.3 g/dl (32.0-36.0); MEAN CELL VOLUME 82.8 fl (80-96); MEAN PLT VOLUME 9.4 fl (7.5-11.1); PLATELET COUNT 81 10^3/uL (134-434); RBC 3.62 M/mm3 (3.60-5.2); WHITE BLOOD COUNT 12.5 K/mm3 (4.0-10.0)
[2025-01-03 08:16] LABS: CHLORIDE 117 mmol/L (98-107); SODIUM 149 mmol/L (136-145)
[2025-01-03 08:18] LABS: POTASSIUM 2.4 mmol/L (3.5-5.1)
[2025-01-03 08:20] LABS: CALCIUM 7.2 mg/dL (8.5-10.1)
[2025-01-03 08:21] LABS: ALBUMIN 1.6 g/dl (3.4-5.0); ANION GAP 7 mmol/L (4-13); CO2 25 mmol/L (21-32); GLUCOSE,RANDOM 112 mg/dL (74-106); MAGNESIUM 1.9 mg/dL (1.8-2.4)
[2025-01-03 08:24] LABS: CREATININE 0.6 mg/dL (0.55-1.3); SGOT/AST 60 U/L (15-37); SGPT/ALT 187 U/L (13-61)
[2025-01-03 08:25] LABS: PHOSPHOROUS 2.3 mg/dL (2.5-4.9)
[2025-01-03 08:26] LABS: BILIRUBIN,TOTAL 0.6 mg/dL (0.2-1)
[2025-01-03 08:27] LABS: ALK PHOS 242 U/L (45-117)
[2025-01-03 09:19] LABS: ANISOCYTOSIS 0; MACROCYTOSIS 0; OVALOCYTE 1+
[2025-01-03] MEDS: POTASSIUM CHLORIDE ORAL LIQUID 20 MEQ/15 ML GT SCH (10:04)
[2025-01-03] MEDS: LEVOTHYROXINE SODIUM 100 MCG 5 ML VIAL IVPUSH SCH (10:05)
[2025-01-03] MEDS: FOLIC ACID 1 MG TABLET (FP) PEG SCH (10:05)
[2025-01-03] MEDS: ZINC SULFATE 220 MG CAPSULE (FP) PEG SCH (10:05)
[2025-01-03] MEDS: ASCORBIC ACID 500 MG/5 ML UNIT DOSE CUP GT SCH (10:05)
[2025-01-03] MEDS: FLUDROCORTISONE ACETATE 0.1 MG TABLET (FP) PO SCH (10:05)
[2025-01-03] MEDS: POTASSIUM PHOSPHATE 30 MM in SODIUM CHLORIDE 500 ML IVPB ONE (11:39)
[2025-01-03] MEDS: LACTOBACILLUS ACIDOPHILUS 1 TABLET PO SCH (21:14)
[2025-01-04 06:51] LABS: HEMATOCRIT 33.6 % (32.4-45.2); HEMOGLOBIN 10.5 GM/dL (10.7-15.3); MCH 25.8 pg (25.7-33.7); MCHC 31.3 g/dl (32.0-36.0); MEAN CELL VOLUME 82.6 fl (80-96); MEAN PLT VOLUME 9.3 fl (7.5-11.1); PLATELET COUNT 106 10^3/uL (134-434); RBC 4.07 M/mm3 (3.60-5.2); RDW 27.5 % (11.6-15.6); WHITE BLOOD COUNT 15.7 K/mm3 (4.0-10.0)
[2025-01-04 06:54] LABS: CHLORIDE 124 mmol/L (98-107); SODIUM 155 mmol/L (136-145)
[2025-01-04 06:57] LABS: CALCIUM 7.3 mg/dL (8.5-10.1)
[2025-01-04 06:58] LABS: ALBUMIN 1.8 g/dl (3.4-5.0); BLOOD UREA NITROGEN 18.7 mg/dL (7-18); CO2 25 mmol/L (21-32); GLUCOSE,RANDOM 121 mg/dL (74-106); MAGNESIUM 1.5 mg/dL (1.8-2.4)
[2025-01-04 07:01] LABS: CREATININE 0.6 mg/dL (0.55-1.3); PHOSPHOROUS 1.8 mg/dL (2.5-4.9); SGOT/AST 94 U/L (15-37); SGPT/ALT 181 U/L (13-61)
[2025-01-04 07:02] LABS: BILIRUBIN,TOTAL 0.7 mg/dL (0.2-1); TOT PROT 5.4 g/dl (6.4-8.2)
[2025-01-04 07:04] LABS: ALK PHOS 253 U/L (45-117)
[2025-01-04 07:10] LABS: ANION GAP 6 mmol/L (4-13); POTASSIUM 2.8 mmol/L (3.5-5.1)
[2025-01-04] MEDS: MAGNESIUM SULF 50% (8.12 MEQ/2 ML-1 GM VIAL) IVPB ONE (08:20)
[2025-01-04] MEDS: POTASSIUM CHLORIDE ORAL LIQUID 20 MEQ/15 ML GT ONE (08:20)
[2025-01-04] MEDS: DEXTROSE 5%-0.45% SALINE 1,000 ML IV SCH (08:20)
[2025-01-04 09:40] LABS: ANISOCYTOSIS 1+; MACROCYTOSIS 0
[2025-01-04] MEDS: NAPH,MB-DB/K PH,MBDB POWDER PACKET GT SCH (10:17)
[2025-01-05 11:27] LABS: HEMATOCRIT 36.2 % (32.4-45.2); HEMOGLOBIN 11.5 GM/dL (10.7-15.3); MCH 26.2 pg (25.7-33.7); MCHC 31.8 g/dl (32.0-36.0); MEAN CELL VOLUME 82.6 fl (80-96); MEAN PLT VOLUME 9.3 fl (7.5-11.1); PLATELET COUNT 117 10^3/uL (134-434); RBC 4.39 M/mm3 (3.60-5.2); RDW 27.5 % (11.6-15.6); WHITE BLOOD COUNT 19.7 K/mm3 (4.0-10.0)
[2025-01-05 12:11] LABS: POTASSIUM 3.1 mmol/L (3.5-5.1)
[2025-01-05 12:14] LABS: CALCIUM 7.8 mg/dL (8.5-10.1)
[2025-01-05 12:15] LABS: ALBUMIN 1.9 g/dl (3.4-5.0); BLOOD UREA NITROGEN 23.4 mg/dL (7-18); MAGNESIUM 1.7 mg/dL (1.8-2.4)
[2025-01-05] MEDS ORDERED: POTASSIUM CHLORIDE ORAL LIQUID 20 MEQ/15 ML PO ONE (12:16)
[2025-01-05 12:18] LABS: CREATININE 0.6 mg/dL (0.55-1.3); PHOSPHOROUS 1.3 mg/dL (2.5-4.9)
[2025-01-05 12:19] LABS: BILIRUBIN,TOTAL 0.8 mg/dL (0.2-1); TOT PROT 5.8 g/dl (6.4-8.2)
[2025-01-05] MEDS ORDERED: POTASSIUM CHLORIDE ORAL LIQUID 20 MEQ/15 ML GT ONE (13:15)
[2025-01-05] MEDS: MAGNESIUM SULFATE IN WATER 2 GM/50 ML IVPB IVPB ONE ×2 (14:52→15:18)
[2025-01-05] MEDS: POTASSIUM CHLORIDE ORAL LIQUID 20 MEQ/15 ML GT ONE ×2 (14:52→16:27)
[2025-01-05] MEDS: COLLAGENASE CLOSTRIDIUM HIST. 30 GRAMS TUBE TP SCH (16:05)
[2025-01-05] MEDS: POTASSIUM PHOSPHATE 30 MM in DEXTROSE 5%-WATER - 500 ML IVPB ONE (17:13)
[2025-01-05] MEDS: POTASSIUM CHLORIDE ORAL LIQUID 20 MEQ/15 ML PO ONE (19:10)
[2025-01-06] MEDS ORDERED: LIDOCAINE VISCOUS 2% ORAL/TOP 15 ML UNIT-DOSE CUP MM PRN (00:31)
[2025-01-06] MEDS ORDERED: LOPERAMIDE HCL 2 MG CAPSULE GT PRN (00:31)
[2025-01-06] MEDS ORDERED: ONDANSETRON 4 MG/2 ML VIAL IVPUSH PRN (00:31)
[2025-01-06] MEDS ORDERED: PHENOL 177 ML SPRAY BOTTLE MM PRN (00:31)
[2025-01-06] MEDS: PIPERACILLIN/TAZOB 2.25 GM 2.25 GM/50 ML BAG IVPB SCH (03:25)
[2025-01-06] MEDS: MAG HYDROX/ALH/SMC/DPHA/LIDO 240 ML MOUTHWASH MM SCH (07:06)
[2025-01-06] MEDS: PETROLATUM, WHITE 30 GM TUBE TP SCH (07:15)
[2025-01-06] MEDS: LEVALBUTEROL HCL 0.63 MG/3 ML VIAL.NEB. IH SCH (07:50)
[2025-01-06] MEDS: IPRATROPIUM BR 0.02% 0.5 MG/2.5 ML VIAL.NEB. NEB SCH (07:50)
[2025-01-06 08:35] LABS: HEMOGLOBIN 11.5 GM/dL (10.7-15.3); MCH 25.6 pg (25.7-33.7); MCHC 30.3 g/dl (32.0-36.0); MEAN CELL VOLUME 84.5 fl (80-96); MEAN PLT VOLUME 9.3 fl (7.5-11.1); PLATELET COUNT 126 10^3/uL (134-434); RBC 4.49 M/mm3 (3.60-5.2); RDW 28.7 % (11.6-15.6); WHITE BLOOD COUNT 22.3 K/mm3 (4.0-10.0)
[2025-01-06 08:57] LABS: POTASSIUM 5.1 mmol/L (3.5-5.1)
[2025-01-06 09:02] LABS: CALCIUM 7.7 mg/dL (8.5-10.1)
[2025-01-06 09:03] LABS: BLOOD UREA NITROGEN 22.6 mg/dL (7-18); MAGNESIUM 2.7 mg/dL (1.8-2.4)
[2025-01-06 09:06] LABS: CREATININE 0.7 mg/dL (0.55-1.3); PHOSPHOROUS 3.2 mg/dL (2.5-4.9)
[2025-01-06 09:07] LABS: BILIRUBIN,TOTAL 0.8 mg/dL (0.2-1)
[2025-01-06 09:08] LABS: TOT PROT 5.9 g/dl (6.4-8.2)
[2025-01-06] MEDS: LYTES/YERBA SANTA 60 ML SPRAY MM SCH (10:00)
[2025-01-06] MEDS: LEVOTHYROXINE SODIUM 100 MCG 5 ML VIAL IVPUSH SCH (10:46)
[2025-01-06] MEDS: PANTOPRAZOLE SODIUM 40 MG VIAL IVPUSH SCH (10:47)
[2025-01-06] MEDS: ZINC SULFATE 220 MG CAPSULE (FP) PEG SCH (10:47)
[2025-01-06] MEDS: ASCORBIC ACID 500 MG/5 ML UNIT DOSE CUP GT SCH (10:47)
[2025-01-06] MEDS: FOLIC ACID 1 MG TABLET (FP) PEG SCH (10:47)
[2025-01-06] MEDS: FLUDROCORTISONE ACETATE 0.1 MG TABLET (FP) PO SCH (10:48)
[2025-01-06] MEDS: PYRIDOXINE HCL 100 MG/1 ML VIAL IVPB SCH (10:50)
[2025-01-06] MEDS: CHOLESTYRAMINE/NUTRASWEET 4 GM PACKET PEG SCH (10:50)
[2025-01-06 10:57] LABS: ANISOCYTOSIS 1+
[2025-01-06] MEDS ORDERED: CHLORHEXIDINE GLUCONATE 4% CLEANSER FOR DECOLONIZATION TP SCH (22:00)
[2025-01-06] MEDS: LACTOBACILLUS ACIDOPHILUS 1 TABLET PO SCH (23:13)
[2025-01-07 09:40] LABS: HEMATOCRIT 28.7 % (32.4-45.2); MCH 26.3 pg (25.7-33.7); MCHC 31.5 g/dl (32.0-36.0); MEAN CELL VOLUME 83.5 fl (80-96); PLATELET COUNT 116 10^3/uL (134-434); RBC 3.44 M/mm3 (3.60-5.2); RDW 27.2 % (11.6-15.6); WHITE BLOOD COUNT 24.9 K/mm3 (4.0-10.0)
[2025-01-07 09:49] LABS: POTASSIUM 3.5 mmol/L (3.5-5.1)
[2025-01-07 09:52] LABS: CALCIUM 7.7 mg/dL (8.5-10.1)
[2025-01-07 09:53] LABS: ALBUMIN 1.9 g/dl (3.4-5.0); BLOOD UREA NITROGEN 15.9 mg/dL (7-18); MAGNESIUM 1.6 mg/dL (1.8-2.4)
[2025-01-07 09:56] LABS: CREATININE 0.7 mg/dL (0.55-1.3)
[2025-01-07 09:57] LABS: BILIRUBIN,TOTAL 0.9 mg/dL (0.2-1)
[2025-01-07] MEDS: SODIUM CHLORIDE 500 ML IV STA ×2 (10:36→23:06)
[2025-01-07 11:20] LABS: ANISOCYTOSIS 1+; MACROCYTOSIS 1+
[2025-01-07] MEDS: MAGNESIUM 2GM/50ML STERILE WATER IVPB IVPB ONE (11:53)
[2025-01-07] MEDS: SODIUM CHLORIDE 1,000 ML IV SCH (13:33)
[2025-01-07] MEDS: SODIUM CHLORIDE 1,000 ML IV STA (15:15)
[2025-01-07] MEDS: MIDODRINE HCL 5 MG TABLET GT SCH (17:20)
[2025-01-07] MEDS: VANCOMYCIN/WATER FOR INJ (PEG) 1,000 MG/200 ML BAG IVPB ONE (19:00)
[2025-01-07] MEDS: MEROPENEM-0.9% SODIUM CHLORIDE 1 GM/50 ML BAG IVPB SCH (20:30)
[2025-01-07] MEDS ORDERED: CHLORHEXIDINE GLUCONATE 4% CLEANSER FOR DECOLONIZATION TP SCH (22:00)
[2025-01-07] MEDS ORDERED: MUPIROCIN 2% TOPICAL OINTMENT FOR DECOLONIZATION NS SCH (22:00)
[2025-01-07] MEDS: NOREPINEPHRINE BITARTRATE/D5W 8 MG/250 ML BAG IVPB SCH (23:00)
[2025-01-07] MEDS: CHLORHEXIDINE GLUCONATE 4% CLEANSER FOR DECOLONIZATION TP SCH (23:05)
[2025-01-07] MEDS: MUPIROCIN 2% TOPICAL OINTMENT FOR DECOLONIZATION NS SCH (23:05)
[2025-01-08] MEDS ORDERED: PHENOL 177 ML SPRAY BOTTLE MM PRN (06:58)
[2025-01-08] MEDS ORDERED: ONDANSETRON 4 MG/2 ML VIAL IVPUSH PRN (06:58)
[2025-01-08] MEDS ORDERED: LIDOCAINE VISCOUS 2% ORAL/TOP 15 ML UNIT-DOSE CUP MM PRN (06:58)
[2025-01-08] MEDS: NOREPINEPHRINE BITARTRATE/D5W 8 MG/250 ML BAG IVPB SCH (07:00)
[2025-01-08] MEDS: SODIUM CHLORIDE 1,000 ML IV SCH (07:01)
[2025-01-08 07:14] LABS: HEMATOCRIT 29.1 % (32.4-45.2); HEMOGLOBIN 9.1 GM/dL (10.7-15.3); MCH 26.2 pg (25.7-33.7); MCHC 31.2 g/dl (32.0-36.0); MEAN CELL VOLUME 83.9 fl (80-96); MEAN PLT VOLUME 9.1 fl (7.5-11.1); PLATELET COUNT 121 10^3/uL (134-434); RBC 3.47 M/mm3 (3.60-5.2); RDW 26.5 % (11.6-15.6); WHITE BLOOD COUNT 23.6 K/mm3 (4.0-10.0)
[2025-01-08 07:19] LABS: INR 1.91 (0.83-1.09)
[2025-01-08 07:31] LABS: CHLORIDE 114 mmol/L (98-107); SODIUM 141 mmol/L (136-145)
[2025-01-08 07:38] LABS: CO2 17 mmol/L (21-32); GLUCOSE,RANDOM 107 mg/dL (74-106); MAGNESIUM 1.3 mg/dL (1.8-2.4)
[2025-01-08 07:40] LABS: SGPT/ALT 125 U/L (13-61)
[2025-01-08] MEDS: LEVALBUTEROL HCL 0.63 MG/3 ML VIAL.NEB. IH SCH (07:40)
[2025-01-08] MEDS: IPRATROPIUM BR 0.02% 0.5 MG/2.5 ML VIAL.NEB. NEB SCH (07:40)
[2025-01-08 07:41] LABS: CREATININE 0.3 mg/dL (0.55-1.3); PHOSPHOROUS 1.6 mg/dL (2.5-4.9); SGOT/AST 58 U/L (15-37)
[2025-01-08 07:42] LABS: BILIRUBIN,TOTAL 0.4 mg/dL (0.2-1); TOT PROT 4.6 g/dl (6.4-8.2)
[2025-01-08 07:44] LABS: ALBUMIN 1.4 g/dl (3.4-5.0); ALK PHOS 182 U/L (45-117); ANION GAP 9 mmol/L (4-13); CALCIUM 6.5 mg/dL (8.5-10.1); POTASSIUM 2.5 mmol/L (3.5-5.1)
[2025-01-08 08:01] LABS: EPI CELLS >36 /uL (0-25.1); HYALINE CASTS 3 /uL (0-3.1); URINE APPEARANCE CLOUDY; URINE BACTERIA 4 /uL (0-1359); URINE BILIRUBIN NEGATIVE (NEGATIVE); URINE COLOR YELLOW; URINE GLUCOSE (UA) NEGATIVE (NEGATIVE); URINE KETONE NEGATIVE (NEGATIVE); URINE LEUK ESTERASE NEGATIVE (NEGATIVE); URINE NITRITE NEGATIVE (NEGATIVE); URINE PROTEIN 1+ (NEGATIVE); URINE UROBILINOGEN 0.2 mg/dL (0.2-1.0)
[2025-01-08] MEDS: MAGNESIUM 2GM/50ML STERILE WATER IVPB IVPB ONE ×2 (08:50→20:09)
[2025-01-08 09:08] LABS: ANISOCYTOSIS 2+; MACROCYTOSIS 1+
[2025-01-08] MEDS: KCL 20 MEQ PREMIX BAG 20 MEQ/100 ML INFUS.BAG IVPB SCH (09:13)
[2025-01-08] MEDS: KCL 10 MEQ IVPB 10 MEQ/100 ML INFUS.BAG IVPB SCH (09:18)
[2025-01-08 09:31] LABS: URINE RBC 91 /uL (0-23.9); YEAST PRESENT (NEGATIVE)
[2025-01-08] MEDS ORDERED: MIDODRINE HCL 5 MG TABLET GT SCH (10:00)
[2025-01-08] MEDS: ASCORBIC ACID 500 MG/5 ML UNIT DOSE CUP GT SCH (10:16)
[2025-01-08] MEDS: PANTOPRAZOLE SODIUM 40 MG VIAL IVPUSH SCH (10:16)
[2025-01-08] MEDS: ZINC SULFATE 220 MG CAPSULE (FP) PEG SCH (10:16)
[2025-01-08] MEDS: ENOXAPARIN NA (PORCINE) 40 MG/0.4 ML DISP.SYRIN SQ SCH (10:16)
[2025-01-08] MEDS: MIDODRINE HCL 5 MG TABLET GT SCH (10:16)
[2025-01-08] MEDS: FLUDROCORTISONE ACETATE 0.1 MG TABLET (FP) PO SCH (10:17)
[2025-01-08] MEDS: FOLIC ACID 1 MG TABLET (FP) PEG SCH (10:17)
[2025-01-08] MEDS: MEROPENEM-0.9% SODIUM CHLORIDE 1 GM/50 ML BAG IVPB SCH (10:17)
[2025-01-08] MEDS: LEVOTHYROXINE SODIUM 100 MCG 5 ML VIAL IVPUSH SCH (10:30)
[2025-01-08] MEDS: LYTES/YERBA SANTA 60 ML SPRAY MM SCH (10:30)
[2025-01-08] MEDS: PYRIDOXINE HCL 100 MG/1 ML VIAL IVPB SCH (10:30)
[2025-01-08] MEDS: MAG HYDROX/ALH/SMC/DPHA/LIDO 240 ML MOUTHWASH MM SCH (13:22)
[2025-01-08] MEDS: POTASSIUM PHOSPHATE 30 MM in DEXTROSE 5%-WATER - 250 ML IVPB ONE (13:22)
[2025-01-08] MEDS: COLLAGENASE CLOSTRIDIUM HIST. 30 GRAMS TUBE TP SCH (13:23)
[2025-01-08] MEDS: POTASSIUM CHLORIDE ORAL LIQUID 20 MEQ/15 ML GT SCH (13:54)
[2025-01-08] MEDS: PETROLATUM, WHITE 30 GM TUBE TP SCH (13:54)
[2025-01-08] MEDS ORDERED: POTASSIUM CHLORIDE ORAL LIQUID 20 MEQ/15 ML GT SCH (14:00)
[2025-01-08] MEDS: INSULIN ASPART SLIDING SCALE (NOVOLOG) 1 VIAL SQ SCH (18:28)
[2025-01-08 18:30] LABS: CHLORIDE 114 mmol/L (98-107); POTASSIUM 4.1 mmol/L (3.5-5.1); SODIUM 140 mmol/L (136-145)
[2025-01-08 18:32] LABS: ANION GAP 10 mmol/L (4-13); CO2 16 mmol/L (21-32)
[2025-01-08 18:33] LABS: GLUCOSE,RANDOM 92 mg/dL (74-106); MAGNESIUM 1.6 mg/dL (1.8-2.4)
[2025-01-08 18:36] LABS: CREATININE 0.3 mg/dL (0.55-1.3); PHOSPHOROUS 5.1 mg/dL (2.5-4.9)
[2025-01-08 18:55] LABS: CALCIUM 6.4 mg/dL (8.5-10.1)
[2025-01-08] MEDS: CALCIUM GLUCONATE 10% - 1,000 MG/10 ML VIAL IVPB ONE (21:19)
[2025-01-08] MEDS: LACTOBACILLUS ACIDOPHILUS 1 TABLET PO SCH (21:33)
[2025-01-09] MEDS: MEROPENEM-0.9% SODIUM CHLORIDE 1 GM/50 ML BAG IVPB SCH (02:10)
[2025-01-09] MEDS: CALCIUM GLUCONATE IN NACL 1 GM/50 ML BAG IVPB SCH (02:54)
[2025-01-09] MEDS: MEROPENEM 1 GM in DEXTROSE 5%-WATER 100 ML IVPB SCH ×2 (03:35)
[2025-01-09 07:56] LABS: BASO % 0.2 % (0-2.0); EOS % 0.2 % (0-4.5); HEMATOCRIT 27.9 % (32.4-45.2); HEMOGLOBIN 9.1 GM/dL (10.7-15.3); LYMPH % 4.1 % (8-40); MCH 26.7 pg (25.7-33.7); MCHC 32.7 g/dl (32.0-36.0); MEAN CELL VOLUME 81.4 fl (80-96); MEAN PLT VOLUME 9.2 fl (7.5-11.1); MONO % 3.3 % (3.8-10.2); NEUT % 92.2 % (42.8-82.8); PLATELET COUNT 121 10^3/uL (134-434); RBC 3.42 M/mm3 (3.60-5.2); RDW 26.2 % (11.6-15.6); WHITE BLOOD COUNT 15.5 K/mm3 (4.0-10.0)
[2025-01-09 08:18] LABS: POTASSIUM 4.7 mmol/L (3.5-5.1)
[2025-01-09 08:21] LABS: ALBUMIN 1.4 g/dl (3.4-5.0); BLOOD UREA NITROGEN 10.4 mg/dL (7-18); MAGNESIUM 1.8 mg/dL (1.8-2.4)
[2025-01-09 08:24] LABS: CREATININE 0.4 mg/dL (0.55-1.3); PHOSPHOROUS 2.4 mg/dL (2.5-4.9)
[2025-01-09 08:25] LABS: BILIRUBIN,TOTAL 0.5 mg/dL (0.2-1)
[2025-01-09 08:26] LABS: CALCIUM 7.7 mg/dL (8.5-10.1); TOT PROT 4.6 g/dl (6.4-8.2)
[2025-01-09 08:40] LABS: ANISOCYTOSIS 1+; MACROCYTOSIS 1+
[2025-01-09] MEDS: MIDODRINE HCL 5 MG TABLET GT SCH (09:09)
[2025-01-09] MEDS: NAPH,MB-DB/K PH,MBDB POWDER PACKET PO ONE (09:09)
[2025-01-09] MEDS: LOPERAMIDE HCL 2 MG CAPSULE GT PRN (13:33)
[2025-01-09 18:08] LABS: POTASSIUM 4.2 mmol/L (3.5-5.1)
[2025-01-09 18:10] LABS: ALBUMIN 1.4 g/dl (3.4-5.0); BLOOD UREA NITROGEN 10.2 mg/dL (7-18); CALCIUM 7.3 mg/dL (8.5-10.1)
[2025-01-09 18:13] LABS: CREATININE 0.4 mg/dL (0.55-1.3)
[2025-01-09 18:15] LABS: BILIRUBIN,TOTAL 0.5 mg/dL (0.2-1); TOT PROT 4.7 g/dl (6.4-8.2)
[2025-01-09] MEDS: AMINO ACIDS 4.25%/D5W 1,000 ML IV SCH (18:53)
[2025-01-09] MEDS: ACETAMINOPHEN 1000 MG/100 ML BAG IVPB ONE (19:57)
[2025-01-09] MEDS: LIDOCAINE 4% PATCH TP ONE (19:57)
[2025-01-09] MEDS: LIDOCAINE PATCH REMOVAL MC SCH (21:51)
[2025-01-10] MEDS: MIDODRINE HCL 5 MG TABLET GT SCH (01:27)
[2025-01-10 07:29] LABS: BASO % 0.5 % (0-2.0); EOS % 0.1 % (0-4.5); HEMATOCRIT 27.1 % (32.4-45.2); HEMOGLOBIN 8.6 GM/dL (10.7-15.3); LYMPH % 6.8 % (8-40); MCH 26.2 pg (25.7-33.7); MCHC 31.7 g/dl (32.0-36.0); MEAN CELL VOLUME 82.7 fl (80-96); MEAN PLT VOLUME 8.8 fl (7.5-11.1); MONO % 3.8 % (3.8-10.2); NEUT % 88.8 % (42.8-82.8); PLATELET COUNT 139 10^3/uL (134-434); RBC 3.27 M/mm3 (3.60-5.2); RDW 26.6 % (11.6-15.6); WHITE BLOOD COUNT 12.6 K/mm3 (4.0-10.0)
[2025-01-10 08:09] LABS: POTASSIUM 3.3 mmol/L (3.5-5.1)
[2025-01-10 08:18] LABS: ALBUMIN 1.4 g/dl (3.4-5.0); BLOOD UREA NITROGEN 16.4 mg/dL (7-18); MAGNESIUM 1.3 mg/dL (1.8-2.4)
[2025-01-10 08:21] LABS: CREATININE 0.3 mg/dL (0.55-1.3); PHOSPHOROUS 1.4 mg/dL (2.5-4.9)
[2025-01-10 08:22] LABS: BILIRUBIN,TOTAL 0.4 mg/dL (0.2-1); TOT PROT 4.6 g/dl (6.4-8.2)
[2025-01-10] MEDS: MAGNESIUM SULFATE IN WATER 2 GM/50 ML IVPB IVPB ONE (09:35)
[2025-01-10 10:28] LABS: ANISOCYTOSIS 2+; MACROCYTOSIS 0; OVALOCYTE 1+
[2025-01-10] MEDS: POTASSIUM PHOSPHATE 30 MM in DEXTROSE 5%-WATER - 250 ML IVPB ONE (10:41)
[2025-01-10 18:04] VITALS: BP 103/53; TEMP 98.7
[2025-01-10 18:22] VITALS: PULSE 80; RESP 15
== END 2025-01-10 18:42 | disposition short-term general hospital (02) | DRG 871 ==
LOC: JER 15:52 → JERBED 19:35 → J6W 12-03 12:20 → J4W 12-03 19:41 → J2W 12-04 02:38 → J7W 12-25 15:21 → JICU 12-29 05:05 → J2W 01-01 20:57 → J8W 01-05 22:56 → JICU 01-07 20:41
PROVIDERS: ADMIT Internal Medicine; ATTEND Internal Medicine
PROC: 4A133B1 Monitoring of Arterial Pressure, Peripheral, Percutaneous Approach (ICD-10-PCS; principal; 2024-12-04)
PROC: 4A133J1 Monitoring of Arterial Pulse, Peripheral, Percutaneous Approach (ICD-10-PCS; 2024-12-04)
PROC: 30233K1 Transfusion of Nonautologous Frozen Plasma into Peripheral Vein, Percutaneous Approach (ICD-10-PCS; 2024-12-05)
PROC: 05HC33Z Insertion of Infusion Device into Left Basilic Vein, Percutaneous Approach (ICD-10-PCS; 2024-12-14)
PROC: 30233N1 Transfusion of Nonautologous Red Blood Cells into Peripheral Vein, Percutaneous Approach (ICD-10-PCS; 2024-12-18)
PROC: 0DJ08ZZ Inspection of Upper Intestinal Tract, Via Natural or Artificial Opening Endoscopic (ICD-10-PCS; 2024-12-31)
PROC: 0W9930Z Drainage of Right Pleural Cavity with Drainage Device, Percutaneous Approach (ICD-10-PCS; 2025-01-07)
PROC: 0WP930Z Removal of Drainage Device from Right Pleural Cavity, Percutaneous Approach (ICD-10-PCS; 2025-01-07)
PROC: 0W9930Z Drainage of Right Pleural Cavity with Drainage Device, Percutaneous Approach (ICD-10-PCS; 2025-01-07)
DX: A41.89 Other specified sepsis (principal); E43 Unspecified severe protein-calorie malnutrition; L89.153 Pressure ulcer of sacral region, stage 3; G93.41 Metabolic encephalopathy; J96.01 Acute respiratory failure with hypoxia; R65.21 Severe sepsis with septic shock; J96.02 Acute respiratory failure with hypercapnia; J69.0 Pneumonitis due to inhalation of food and vomit; J44.1 Chronic obstructive pulmonary disease with (acute) exacerbation; N17.9 Acute kidney failure, unspecified; I24.89 Other forms of acute ischemic heart disease; C18.9 Malignant neoplasm of colon, unspecified; E87.1 Hypo-osmolality and hyponatremia; E87.20 Acidosis, unspecified; K92.2 Gastrointestinal hemorrhage, unspecified; I42.9 Cardiomyopathy, unspecified; N39.0 Urinary tract infection, site not specified; D68.9 Coagulation defect, unspecified; Z68.1 Body mass index [BMI] 19.9 or less, adult; H46.9 Unspecified optic neuritis; D62 Acute posthemorrhagic anemia; J93.83 Other pneumothorax; L98.498 Non-pressure chronic ulcer of skin of other sites with other specified severity; E03.9 Hypothyroidism, unspecified; R62.7 Adult failure to thrive; E83.42 Hypomagnesemia; R11.2 Nausea with vomiting, unspecified; R00.0 Tachycardia, unspecified; R13.10 Dysphagia, unspecified; D70.1 Agranulocytosis secondary to cancer chemotherapy; D69.6 Thrombocytopenia, unspecified; B96.1 Klebsiella pneumoniae [K. pneumoniae] as the cause of diseases classified elsewhere; E86.0 Dehydration; K13.79 Other lesions of oral mucosa; J06.9 Acute upper respiratory infection, unspecified; R50.9 Fever, unspecified; T45.1X5A Adverse effect of antineoplastic and immunosuppressive drugs, initial encounter; E87.6 Hypokalemia; K12.31 Oral mucositis (ulcerative) due to antineoplastic therapy; R13.12 Dysphagia, oropharyngeal phase; R07.0 Pain in throat; E83.39 Other disorders of phosphorus metabolism; R31.29 Other microscopic hematuria; K20.80 Other esophagitis without bleeding; K44.9 Diaphragmatic hernia without obstruction or gangrene; L89.621 Pressure ulcer of left heel, stage 1; L89.611 Pressure ulcer of right heel, stage 1; L89.312 Pressure ulcer of right buttock, stage 2
CPT/HCPCS: 0241U-QW; 36415; 36430; 36516; 36600; 49440; 70450-TC; 71045-TC-FY; 71250-TC; 74018-TC-FY; 74176-TC; 74230-TC-FY; 76705-TC; 80048; 80053; 80076; 81003; 82010; 82024; 82248; 82272; 82308; 82533; 82550; 82570; 82607; 82746; 82803; 82962; 83036; 83605; 83690; 83735; 83880; 83935; 84100; 84300; 84436; 84443; 84484; 84540; 85025; 85027; 85384; 85610; 85651; 85730; 86022; 86140; 86850; 86900; 86901; 86922; 87040; 87045; 87046; 87081; 87086; 87186; 87324; 87449; 87481; 88300-TC; 92611-GN; 93005; 93010; 93306-TC; 93308; 93970-TC; 94640; 97116-GP; 97162-GP; 99285-25; J0131; J1447; J1644; J3490; P9017; P9058